=== PATIENT | female | born 1995 | race Caucasian/White ===

== ENCOUNTER 2020-02-13 22:42 | Observation (INO) | payer OTHER, SELFPAY ==
--- NOTE | ~2020-02-13 | CT_ITS ---
EXAMINATION: CT BRAIN W/O DATE: 02/13/2020 23:28 INDICATION: Left-sided weakness and facial numbness TECHNIQUE: Computed tomography (CT) of the head was performed without intravenous contrast. The dose- length product was 605.33 mGy-cm. The mA was adjusted according to patient size. Iterative reconstruc tion technique was employed. COMPARISON: CT dated 01/26/2015 FINDINGS: Normal brain parenchymal volume for age. Normal torres-white differentiation. No acute intrac ranial hemorrhage, infarction, mass or mass effect. No ventriculomegaly or midline shift. Midline sagittal images demonstrate a normal corpus callosum, c raniovertebral junction and sella turcica. Basilar cisterns are patent. Paranasal sinuses and mastoids are pneumatized. No depressed skull fractures. IMPRESSION: 1. No acute intracranial abnormality. Reviewed, dictated and finalized at location A. IT CARD ANALYST
--- NOTE | ~2020-02-13 | MR_ITS ---
EXAMINATION: MR cervical spine wo/w con EXAM DATE: 02/14/2020 14:07 INDICATION: Left sided weakness. TECHNIQUE: Multi-sequential, multiplanar MR images of the cervical spine were obtained without contra st. Axial T2, axial T2 MERGE sequence. Sagittal T1, T2, T2 fat saturation images also obtained. Axi al T1 weighted sequence. Patient was then injected with 9 mL Multihance intravenous contrast and pearl letty. Postcontrast axial and sagittal T1-weighted fat saturation sequences were obtained. There is no prior study for comparison. FINDINGS: The vertebral bodies are aligned in the AP dimension. Vertebral body and disc heights are well-maintained. The spinal cord signal intensity and intrinsic morphology is normal. Cervicomedullar y junction is normal in appearance. There are no suspicious marrow signal abnormalities. Paraspinal s oft tissue is unremarkable. No more than mild cervical arthropathy at any given level. No neural for aminal or central canal stenosis. There are no areas of abnormal enhancement on the post contrast henry ges. IMPRESSION: Unremarkable MR cervical spine exam. Reviewed, dictated and finalized at location B. LEADER/CONTROL ROOM OPERATOR
--- NOTE | ~2020-02-13 | MR_ITS ---
EXAMINATION: MR lumbar spine wo/w con EXAM DATE: 02/14/2020 14:07 INDICATION: left sided weakness . TECHNIQUE: Multi-sequential, multiplanar MR images of the lumbar spine were obtained without contrast . Sagittal T1, T2, T2 fat saturation images. Axial T2 weighted images. Axial T1 weighted sequence. Patient was then injected with 9 mL Multihance intravenous contrast and reimaged. Postcontrast axia l and sagittal T1-weighted fat saturation sequences were obtained. FINDINGS: The vertebral bodies are aligned in the AP dimension. Mild disc bulge at L5-S1. Vertebral b pranay and disc heights are well-maintained. There are no suspicious marrow signal abnormalities. The co nus medullaris terminates at the L1/2 level and has normal signal intensity and morphology. Paraspin al soft tissue is unremarkable. There are no areas of abnormal enhancement on the post contrast image s. Lumbar central canal and neural foramen widely patent. Mild lower lumbar facet arthropathy. IMPRESSION: Mild lower lumbar spondylosis. Reviewed, dictated and finalized at location B. CEMENTER
--- NOTE | ~2020-02-13 | MR_ITS ---
EXAMINATION: MR brain/brain stem wo/w con EXAM DATE: 02/14/2020 14:07 INDICATION: Left hemiparesis, symptoms 2 months. Blurred vision. TECHNIQUE: Magnetic resonance imaging (MRI) of the brain/brain stem obtained without contrast. Sagit paulette T1, axial diffusion, gradient echo (T2*), T1, T2, FLAIR sequences obtained. Patient was then inj ected with 9 cc intravenous Multihance contrast. Axial and coronal postcontrast T1 weighted sequences obtained. Correlation is made to head CT from 02/13/2020. FINDINGS: There are no areas of restricted diffusion to suggest acute infarction. There is no acute hemorrhage seen on the T2*, a hemosiderin sensitive sequence. No intraparenchymal brain mass. The ve ntricles are normal in size. There are no extra-axial collections. Flow voids are seen in the cereb ral arteries on the T2-weighted sequences consistent with their expected patency. The orbits are unr emarkable. Soft tissue is unremarkable. Partial right mastoidectomy. Postcontrast images are limit ed from motion, but no regions of abnormal enhancement suspected. IMPRESSION: 1. Unremarkable brain MRI examination. Reviewed, dictated and finalized at location B. GING OPERATOR
--- NOTE | ~2020-02-13 | MR_ITS ---
EXAMINATION: MR thoracic spine wo/w con EXAM DATE: 02/14/2020 14:07 INDICATION: left sided weakness. TECHNIQUE: Multi-sequential, multiplanar MR images of the thoracic spine were obtained without contra st. Sagittal T1, T2, T2 fat saturation, axial T2 weighted images reviewed. Axial T1 weighted sequenc e. Patient was then injected with 9 mL Multihance intravenous contrast and reimaged. Postcontrast a xial and sagittal T1-weighted fat saturation sequences were obtained. FINDINGS: The vertebral bodies are aligned in the AP dimension. Vertebral body and disc heights are w ell-maintained. There are no suspicious marrow signal abnormalities. Paraspinal soft tissue is unrema rkable. Thoracic spinal canal and neural foramen are widely patent. There are no areas of abnormal en hancement on the post contrast images. IMPRESSION: Unremarkable thoracic MR exam. Reviewed, dictated and finalized at location B. IT VERIFICATION CLERK
--- NOTE | ~2020-02-13 | XR_ITS ---
EXAMINATION: XR chest 2V 02/13/2020 23:48 INDICATION: Rule out cardiopulmonary abnormality. Dyspnea. PROCEDURE: 2 view chest COMPARISON: 11/05/2018 FINDINGS: The lungs are clear. The cardiomediastinal silhouette is within normal limits. There are no pleural effusions. There is no pneumothorax suspected. Prominent bilateral nipple shadows. IMPRESSION: 1: NO ACUTE CARDIOPULMONARY DISEASE. Reviewed, dictated and finalized at location A. CTION HEAT TREATER
--- NOTE | 2020-02-13 22:46 | ED.GENADULT ---
HPI - General Adult General Chief complaint: Unspecified Stated complaint: left arm and face numbness x 2 months Time Seen by Provider: 02/13/20 22:45 Source: patient and family Mode of arrival: ambulatory Limitations: no limitations History of Present Illness HPI narrative: Patient is a 24-year-old female who presents for evaluation of left-sided weakness. Patient reports arm, hand and left leg weakness over the past 6 to 8 weeks, worsening in nature. Patient denies any headache or vision changes, states that this evening she has had difficulty gripping anything with her left hand, has more frequently been dropping items, and was unable to type this evening. She states that she does not currently have a primary care physician that she is established with. She denies any fever, chills, neck pain, chest or abdominal pain. No recent illnesses. Patient states that 1 year ago she developed a severe right inner ear infection that had to be managed inpatient at [facility] and she does get recurrent ear infections and has been experiencing ear pain and ear discharge from the right ear. She follows with Dr. Brooks at [facility] for that. She is not currently on any antibiotics. Related Data Home Medications Medication Instructions Recorded Confirmed Iud 02/13/19 09/27/19 alprazolam 0.5 mg PO TID PRN 02/13/19 09/27/19 dextroamphetamine-amphetamine 5 mg PO DAILY 02/13/19 09/27/19 [Adderall] dextroamphetamine-amphetamine 15 mg PO DAILY 02/13/19 09/27/19 [Adderall] Allergies Allergy/AdvReac Type Severity Reaction Status Date / Time adhesive tape Allergy Mild Rash Verified 09/27/19 15:28 Review of Systems Review of Systems: Narrative: CONSTITUTIONAL: Denies fever, chills, or sweats. EYES: Denies visual changes, redness, or discharge. ENT: Denies rhinorrhea, congestion, sore throat, reports right ear pain CARDIOVASCULAR: Denies chest pain, palpitations, or edema. RESPIRATORY: Denies cough or dyspnea. GASTROINTESTINAL: Denies abdominal pain, nausea, vomiting, or diarrhea. GENITOURINARY: Denies dysuria or hematuria. SKIN: Denies rash or itching. MUSCULOSKELETAL: Denies back pain, joint pain, or myalgia. NEUROLOGIC: Denies headache, numbness, reports left upper and left lower extremity weakness PMFSH Past Medical History Medical History ADHD Amblyopia Anxiety History of depression Microscopic colitis Mood disorder Surgical History Surgical History H/O colonoscopy H/O endoscopy Hx of tonsillectomy Family History Family History Mother Heart disease Hypertension Hyperlipidemia Father Carcinoma of colon Narcolepsy Sibling Depression Schizophrenia Bipolar disorder Autism spectrum disorder Asperger syndrome Grandparent Breast cancer Narcolepsy Carcinoma of colon Social History Social History Smoking status: Current every day smoker Tobacco type: e-cigarettes/vaping Alcohol intake: current Substance use: never Exam Narrative: Exam Narrative: GENERAL: Awake, alert, conversant HEAD: Normocephalic, atraumatic. EYES: PERRLA and EOMI. ENT: Nares clear, no rhinorrhea or epistaxis. Mucous membranes moist. Left otitis media, no perforation or bleeding. No pain with retraction of the pinna. No erythema along the mastoid. NECK: Supple. CHEST: No respiratory distress, breathing even and non labored HEART: Regular rate, sinus rhythm ABDOMEN:Non distended, non tender EXTREMITIES: Normal range of motion. No edema. SKIN: Warm, dry, no rash. NEURO: No facial droop. No dysarthria. No tongue deviation. Left upper extremity weakness, membership sales advisor strength is 4 out of 5 in the left upper extremity, 5 out of 5 in the right upper extremity. Left leg weakness, strength is 4 out of 5 i
[2020-02-13 22:48] VITALS: BP 120/62; PULSE 84; RESP 16; TEMP 36.8; O2SAT 98
[2020-02-13 23:47] LABS: Basophils Percent Auto 0.5 % (0.2-1.2); Eosinophils Absolute Auto 0.3 K/mm3 (0-0.3); Eosinophils Percent Auto 3.4 % (0-4.4); Hematocrit 41.4 % (37.0-47.0); Hemoglobin 14.1 g/dL (12.0-15.0); Immature Granulocyte Absolute 0.02 K/mm3 (0.00-0.031); Immature Granulocyte Percent A 0.2 % (0-0.5); Lymphocytes Absolute Auto 2.81 K/mm3 (0.9-3.2); Lymphocytes Percent Auto 33.8 % (18.3-44.2); Mean Corpuscular HGB Conc 34.1 g/dl (32-36); Mean Corpuscular Hemoglobin 29.9 pg (26-34); Mean Corpuscular Volume 87.9 fl (80-100); Mean Platelet Volume 10.5 fl (7.4-10.4); Monocytes Absolute Auto 0.7 K/mm3 (0.1-0.6); Monocytes Percent Auto 7.9 % (2.6-8.5); Neutrophils Absolute Auto 4.5 K/mm3 (1.3-6.7); Neutrophils Percent Auto 54.2 % (45.5-73.1); Platelet Count Result 166 k/mm3 (150-375); Red Blood Count 4.71 M/mm3 (4.2-5.4); White Blood Count 8.3 K/mm3 (4.5-10.0)
[2020-02-13 23:56] LABS: INR 1.1; Prothrombin Time 14.4 Seconds (11.1-14.7)
[2020-02-13 23:57] LABS: Partial Thromboplastin Time 26.1 SECONDS (22.3-36.8)
[2020-02-14] VITALS (13 sets, daily range): BP systolic 104–116; BP diastolic 56–71; PULSE 62–113; RESP 12–18; TEMP 36.5–36.8; O2SAT 96–100; BMI 20.5
[2020-02-14] LABS: Alanine Aminotransferase 11 U/L (4-35); Albumin Level 4.3 g/dL (3.5-5.1); Alkaline Phosphatase 54 U/L (38-126); Anion Gap 7 mmol/L (8-16); Aspartate Amino Transferase 20 U/L (14-36); Bilirubin,Total 0.6 mg/dL (0.2-1.3); Blood Urea Nitrogen 17 mg/dL (7-17); Calcium 9.4 mg/dL (8.4-10.2); Carbon Dioxide 30 mmol/L (22-30); Chloride 103 mmol/L (98-107); Estimated Glomerular Filt Rate > 60; Glucose 90 mg/dL (65-105); Potassium 3.7 mmol/L (3.4-5.0); Sodium 140 mmol/L (137-145)
--- NOTE | 2020-02-14 00:02 | ECG_ITS ---
Measurements Intervals Emerson Rate: 71 P: 58 NJ: 130 QRS: 69 QRSD: 94 T: 57 QT: 399 QTc: 434 Interpretive Statements SINUS RHYTHM INCOMPLETE RIGHT BUNDLE BRANCH BLOCK BORDERLINE ECG Electronically Signed On 02-14-2020 7:40:23 CUSTOMER CONSULTANT by Valentín Willard D.O.
[2020-02-14] MEDS: AMOXICILLIN/CLAVULANATE K 875-125 MG TAB 1 TABLET PO ×3 (02:34→20:08)
--- NOTE | 2020-02-14 03:00 | ADMGEN ---
This patient, Amy Roblero, was admitted to Medical Room 341-01. Patient/family oriented to hospital policies and general routines including ID bracelet, bed and alarms, visiting hours, pain management, procedures, bathroom and other care routines, personal items, smoking policy, room service/diet, and visiting hours. Information on how to activate the Rapid Response Team has been discussed. Patient/Family are encouraged to report perceived risks to care and to ask questions if they do not understand what they are told or what they should do.
--- NOTE | 2020-02-14 04:22 | PM.IMHP ---
H&P: HPI History of Present Illness Date/Time: 02/14/20 04:22 Chief Complaint: left hand weakness Narrative: This is a 24 year old Caucsian female with known bipolar disorder and chronic ear infections who presented to the hospital with a complaint of left upper/lower extremity weakness that has been ongoing for the past 2 months. She has been noticing worsening left sided weakness which seems to have worsened recently. She has decreased pbx mechanic strength of her left hand. Associated symptoms include intermittent blurry vision. She denies any numbness or tingling. She has not had any recent head trauma or seizure like symptoms. The patient is known to have chronic ear infections for which she sees Dr. Brooks, ENT who helps her by cleaning out the cerumen in her ears and giving her Ciprodex antibiotic ear drops. The patient reports that she has been having right ear pain which is reminiscent of when she has an ear infection. Tonight she denies any fevers, chills, headache, facial droop, slurred speech, nausea, vomiting, neck stiffness, sore throat, chest pain, shortness of breath, cough, abdominal pain, dysuria, hematuria, diarrhea, rectal bleeding, bowel or bladder dysfunction, or LE swelling. She denies any other focal neurological deficits. ER provider has consulted Neurology, Dr. Snyder who has asked that we admit the patient to the hospital and he will evaluate her in the morning. No other complaints. Review of Systems Review of Systems: All systems reviewed & are unremarkable except as noted in HPI and below PMFSH Past Medical History Medical History ADHD Amblyopia Anxiety History of depression Microscopic colitis Mood disorder Surgical History Surgical History H/O colonoscopy H/O endoscopy Hx of tonsillectomy Family History Family History Mother Heart disease Hypertension Hyperlipidemia Father Carcinoma of colon early colon cancer in his 40s Narcolepsy Sibling Depression Schizophrenia Bipolar disorder Autism spectrum disorder Asperger syndrome Grandparent Breast cancer Narcolepsy Carcinoma of colon Social History Social History Smoking packs per day: 2 Smoking cigarettes per day: 40.0 Years smoked: 7 Smoking pack-years: 14.00 Smoking status: Current some day smoker Tobacco type: cigarettes and e-cigarettes/vaping Second hand tobacco smoke exposure: Yes Alcohol intake: current Drinks per week: 1 Substance use: current Substance use type: marijuana Other substance usage details: uses 1-2 times per month Last use: 1 week ago Gender identity (if verbalized by the patient): Female Spiritual care concerns: No Meds Home Medications and Allergies Home Medications Medication Instructions Recorded Confirmed Type alprazolam 0.5 mg PO DAILY PRN 02/13/19 02/14/20 History Vraylar 1.5 mg PO DAILY 02/14/20 02/14/20 History trazodone See Rx Instructions .ROUTE .COMPLEX 02/14/20 02/14/20 History amoxicillin-pot clavulanate 1 tablet PO Q12HR 6 Days #12 tablet 02/15/20 Rx [Augmentin] Allergies Allergy/AdvReac Type Severity Reaction Status Date / Time adhesive tape Allergy Mild Rash Verified 02/14/20 03:08 Vital Signs Vital Signs - 24 hr 02/13/20 22:48 02/14/20 00:07 02/14/20 02:54 Temperature 36.8 C 36.8 C Pulse Rate 84 77 81 Respiratory Rate 16 16 16 Blood Pressure 120/62 109/66 104/62 Pulse Oximetry 98 100 100 02/14/20 03:11 02/14/20 03:31 02/14/20 03:40 Temperature 36.8 C Pulse Rate 62 86 62 Respiratory Rate 12 12 Blood Pressure 116/71 116/71 Pulse Oximetry 100 02/14/20 04:00 Temperature Pulse Rate 93 Respiratory Rate Blood Pressure Pulse Oximetry Exam Const: General: cooperative, no acute distress, a
[2020-02-14 05:43] LABS: Basophils Percent Auto 0.7 % (0.2-1.2); Eosinophils Absolute Auto 0.3 K/mm3 (0-0.3); Eosinophils Percent Auto 5.4 % (0-4.4); Hematocrit 41.3 % (37.0-47.0); Hemoglobin 13.9 g/dL (12.0-15.0); Immature Granulocyte Absolute 0.02 K/mm3 (0.00-0.031); Immature Granulocyte Percent A 0.3 % (0-0.5); Lymphocytes Absolute Auto 2.39 K/mm3 (0.9-3.2); Lymphocytes Percent Auto 39.1 % (18.3-44.2); Mean Corpuscular HGB Conc 33.7 g/dl (32-36); Mean Corpuscular Hemoglobin 29.6 pg (26-34); Mean Corpuscular Volume 87.9 fl (80-100); Mean Platelet Volume 10.7 fl (7.4-10.4); Monocytes Absolute Auto 0.5 K/mm3 (0.1-0.6); Monocytes Percent Auto 8.7 % (2.6-8.5); Neutrophils Absolute Auto 2.8 K/mm3 (1.3-6.7); Neutrophils Percent Auto 45.8 % (45.5-73.1); Platelet Count Result 166 k/mm3 (150-375); Red Cell Distribution Width 11.9 % (11.5-14.5); White Blood Count 6.1 K/mm3 (4.5-10.0)
[2020-02-14 05:56] LABS: Anion Gap 6 mmol/L (8-16); Blood Urea Nitrogen 16 mg/dL (7-17); Calcium 9.1 mg/dL (8.4-10.2); Carbon Dioxide 29 mmol/L (22-30); Chloride 103 mmol/L (98-107); Estimated Glomerular Filt Rate > 60; Glucose 127 mg/dL (65-105); Magnesium 2.2 mg/dL (1.6-2.3); Potassium 3.7 mmol/L (3.4-5.0); Sodium 138 mmol/L (137-145)
[2020-02-14 06:21] LABS: Free T4 Free Thyroxine 1.12 ng/mL (0.78-2.19)
[2020-02-14 08:46] LABS: Folic Acid 13.9 ng/mL (2.76->20)
[2020-02-14] MEDS: ALPRAZolam (*CRX) 0.5 MG TABLET PO ×2 (09:57→10:52)
--- NOTE | 2020-02-14 10:53 | PM.IMPN ---
Progress Note: A&P Assessment and Plan (1) Acute left-sided weakness: Code(s): R53.1 - Weakness Status: Acute Assessment and Plan: Pts symptoms are concerning for a neurological disorder. -DDx includes Multiple sclerosis, demyelinating syndrome, myelitis, CVA, conversion disorder -B12, folate, and TSH are WNL -MRI of brain and spinal cord ordered -Pt has no hx of autoimmune disease or MS in her family that she knows of -Consider EMG testing and LP once MRI has been resulted -Neurology consult -Pt has bipolar disorder which appears to be under control. No signs of malingering although cannot rule out that or conversion disorder -no signs of infection (2) Anxiety: Code(s): F41.9 - Anxiety disorder, unspecified Status: Chronic Assessment and Plan: Continue home xanax. -She used to take it 3x a day but is trying to be weaned off (3) Mood disorder: Code(s): F39 - Unspecified mood [affective] disorder Status: Chronic Assessment and Plan: Stable, Continue home antipsychotic meds. -okay to bring from home (4) Right ear pain: Code(s): H92.01 - Otalgia, right ear Status: Acute Assessment and Plan: Continue augmentin -follow up with her ENT Time Spent With Patient Time with patient: 25 - 35 minutes Subjective Date/time seen: 02/14/20 10:53 Interval history: Pt is a 24 y/o female here for left sided weakness. Pt states the numbness comes and goes but never fully goes away. Right now she has some feeling in her left fingers but it comes and goes. She has not had any loss of vision, problems with speak and states she has no problems with walking but does trip over her left foot at times because it doesn't cooperate right. She started a new bipolar medication vraylar a few weeks ago but all these symptoms started before that. Since the medication she has occasional blurred vision which her doctor said was normal. Her earache is better. No CP, SOB, nausea, vomiting or diarrhea. Review of Systems Review of Systems: All systems reviewed & are unremarkable except as noted in HPI and below Exam Narrative: Exam Narrative: General: Well developed well nourished patient in NAD HEENT: normocephalic Neck: supple Neuro: Alert and oriented x4. Club Manager strength weak 4/5 on the left side. Pt able to do finger to nose and rapid alternating movements with both hands. She had a negative Romberg. No pronator drift. She was unable to differentiate dull vs sharp on the palmar surface of the left hand near the fingers but each finger had sensation intact. No ataxia or foot drop noted while walking. CN 2-12 intact. CV:RRR. tele without abnormalities Resp:CTA Abd: Soft, non distended. No pain to palpation. Positive bowel sounds Extremities: No swelling, erythema, or pain to palpation. Objective Data Vital Signs Vital Signs: Vital Signs - 24 hr 02/13/20 22:48 02/14/20 00:07 02/14/20 02:54 Temperature 98.2 F 98.2 F Pulse Rate 84 77 81 Respiratory Rate 16 16 16 Blood Pressure 120/62 109/66 104/62 Pulse Oximetry 98 100 100 02/14/20 03:11 02/14/20 03:31 02/14/20 03:40 Temperature 98.2 F Pulse Rate 62 86 62 Respiratory Rate 12 12 Blood Pressure 116/71 116/71 Pulse Oximetry 100 02/14/20 04:00 02/14/20 05:37 02/14/20 08:00 Temperature 97.7 F Pulse Rate 93 75 77 Respiratory Rate 12 Blood Pressure 105/56 L Pulse Oximetry 100 Intake/Output Intake/Output: Intake & Output 02/11/20 02/12/20 02/13/20 02/14/20 23:59 23:59 23:59 23:59 Intake Total 440 Output Total 400 Balance 40 Meds/Results Medications: Active Medications Generic Name Dose Route Start Last Admin Trade Name Rafyq PRN Reason Stop Dose Admin Acetaminophen 650 mg 02/14/20 01:19 Acetaminophen 325 Mg Tablet PO Q4H PRN Mild Pain (1-3) or Fever Alprazolam 0.5 mg 02/14/20 10:34 Alprazolam (*Crx) 0.5 Mg Tablet PO
[2020-02-14 12:31] LABS: CRP < 0.5 mg/dL (<1.0)
--- NOTE | 2020-02-14 12:55 | WPDNEURCNPN ---
Assessment and Plan Assessment and plan (1) Right ear pain: Code(s): H92.01 - Otalgia, right ear Status: Acute (2) Acute left-sided weakness: Code(s): R53.1 - Weakness Status: Acute (3) ADHD: Code(s): F90.9 - Attention-deficit hyperactivity disorder, unspecified type Status: Acute Additional Plan complaint of left-sided weakness and numbness considering the age of the patient I will obtain the MRI of the brain to rule out the possibly of demyelinating disease which is extremely unlikely Consult date: 02/14/20 Time Seen: 12:00 HPI: Amy Roblero is a 24 year old female admitted to the hospital for the complaints of left upper and left lower extremity weakness ongoing for the last couple of months with association of blurred vision and also with no history of trauma or seizures. Patient is known to have chronic ear infection for which she is under the care of ENT specialist. She has been complaining of right ear pain. Patient does carry the diagnosis of bipolar illness. Additionally patient has ongoing history of ADHD anxiety there is history of schizophrenia with bipolar disorder and autism spectrum disorder in the family . Patient is smoking 2 packs per day with smoking packed here history of 14. Routine lab in the emergency room is negative and head CT scan is normal Review of Systems Review of Systems: All systems reviewed & are unremarkable except as noted in HPI and below PMFSH Past Medical History Medical History ADHD Amblyopia Anxiety History of depression Microscopic colitis Mood disorder Surgical History Surgical History H/O colonoscopy H/O endoscopy Hx of tonsillectomy Family History Family History Mother Heart disease Hypertension Hyperlipidemia Father Carcinoma of colon early colon cancer in his 40s Narcolepsy Sibling Depression Schizophrenia Bipolar disorder Autism spectrum disorder Asperger syndrome Grandparent Breast cancer Narcolepsy Carcinoma of colon Social History Social History Smoking packs per day: 2 Smoking cigarettes per day: 40.0 Years smoked: 7 Smoking pack-years: 14.00 Smoking status: Current some day smoker Tobacco type: cigarettes and e-cigarettes/vaping Second hand tobacco smoke exposure: Yes Alcohol intake: current Drinks per week: 1 Substance use: current Substance use type: marijuana Other substance usage details: uses 1-2 times per month Last use: 1 week ago Gender identity (if verbalized by the patient): Female Spiritual care concerns: No Meds Home Medications and Allergies Home Medications Medication Instructions Recorded Confirmed Type alprazolam 0.5 mg PO DAILY PRN 02/13/19 02/14/20 History cariprazine [Vraylar] 1.5 mg PO DAILY 02/14/20 02/14/20 History trazodone See Rx Instructions .ROUTE .COMPLEX 02/14/20 02/14/20 History Allergies Allergy/AdvReac Type Severity Reaction Status Date / Time adhesive tape Allergy Mild Rash Verified 02/14/20 03:08 Vital Signs Vital Signs - 24 hr 02/13/20 22:48 02/14/20 00:07 02/14/20 02:54 Temperature 36.8 C 36.8 C Pulse Rate 84 77 81 Respiratory Rate 16 16 16 Blood Pressure 120/62 109/66 104/62 Pulse Oximetry 98 100 100 02/14/20 03:11 02/14/20 03:31 02/14/20 03:40 Temperature 36.8 C Pulse Rate 62 86 62 Respiratory Rate 12 12 Blood Pressure 116/71 116/71 Pulse Oximetry 100 02/14/20 04:00 02/14/20 05:37 02/14/20 08:00 Temperature 36.5 C Pulse Rate 93 75 77 Respiratory Rate 12 Blood Pressure 105/56 L Pulse Oximetry 100 02/14/20 12:00 Temperature Pulse Rate 72 Respiratory Rate Blood Pressure Pulse Oximetry Exam Narrative: Exam Narrative: examination revealed her to be
--- NOTE | 2020-02-14 18:38 | PHAR ---
Loulouaylar 1.5mg see in pharmacy and returned to [facility] nursing unit
[2020-02-15] VITALS: PULSE 55
[2020-02-15 04:00] VITALS: PULSE 83
[2020-02-15 04:27] VITALS: BP 110/58; PULSE 81; RESP 18; TEMP 36.4; O2SAT 99
[2020-02-15] MEDS: ALPRAZolam (*CRX) 0.5 MG TABLET PO (04:52)
[2020-02-15 08:41] VITALS: PULSE 85
[2020-02-15] MEDS: AMOXICILLIN/CLAVULANATE K 875-125 MG TAB 1 TABLET PO (08:41)
--- NOTE | 2020-02-15 11:36 | PM.DS ---
DS: Admitting Diagnosis Admitting Diagnosis Admitting Diagnosis: Left-sided weakness DS: Discharge Diagnosis Discharge Diagnosis (1) Acute left-sided weakness: Code(s): R53.1 - Weakness Status: Acute Assessment and Plan: Pts symptoms are concerning for a neurological disorder. -MRI of the brain, cervical, lumbar, and thoracic spine normal -patient would [facility] in [facility]y unit -we discussed a lumbar puncture and EMG. -we also talked about conversion disorder and she says she has been told she may have that in the past by her psychiatrist PA -DDx includes Multiple sclerosis, demyelinating syndrome, myelitis, CVA, conversion disorder -B12, folate, and TSH are WNL -Pt has no hx of autoimmune disease or MS in her family that she knows of -Pt has bipolar disorder which appears to be under control. No signs of malingering although cannot rule out that or conversion disorder -no signs of infection (2) Anxiety: Code(s): F41.9 - Anxiety disorder, unspecified Status: Chronic Assessment and Plan: Continue home xanax. -She used to take it 3x a day but is trying to be weaned off (3) Mood disorder: Code(s): F39 - Unspecified mood [affective] disorder Status: Chronic Assessment and Plan: Stable, Continue home antipsychotic meds. (4) Right ear pain: Code(s): H92.01 - Otalgia, right ear Status: Acute Assessment and Plan: Continue augmentin -follow up with her ENT DS: Summary Hospital Course Reason for hospitalization: Left-sided weakness Hospital Course: Patient is a 24-year-old female who presented emergency room for left-sided weakness that started a few weeks prior. Initial brain CT in the ER was negative. On exam, her strength was 4/5 in the upper and lower extremities. She also states she has some numbness and tingling in the left hand as well. She was admitted to the hospitalist service for observation and further workup. She underwent a brain MRI as well as cervical, thoracic, and lumbar MRI which were completely normal. Please see above for further details. I suspect she may have conversion disorder but she wants to follow-up with a neurologist at [facility] for further testing. The day of discharge the patient still had mild weakness but was ready to go. She was educated about the worrisome signs and symptoms to come back to emergency room for was discharged stable condition. pt states her psychiatrist PA has mentioned conversion disorder in the past pt discharged 02/15/20 Time spent discussing smoking cessation with patient: more than 10 minutes Status at Discharge Functional status at discharge: independent ambulation Overall status at discharge: patient is not back to baseline Time Spent with Patient Time attestation: Total time spent providing and/or coordinating discharge services:38 min Exam Narrative: Exam Narrative: General: Well developed well nourished patient in NAD HEENT: normocephalic Neck: supple Neuro: Alert and oriented x4. 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 Pt able to do finger to nose and rapid alternating movements with both hands. She had a negative Romberg. No pronator drift. She was unable to differentiate dull vs sharp on the palmar surface of the left hand near the fingers but each finger had sensation intact. No ataxia or foot drop noted while walking. CN 2-12 intact. CV:RRR. Telemetry shows occasional sinus tachycardia which is attributed to movement. It appeared regular Resp:CTA Abd: Soft, non distended. No pain to palpation. Positive bowel sounds Extremities: No swelling, erythema, or pain to palpation. DS: Data Data Completed and Pending Labs on day of discharge: Labs from last 24 hours 02/14/20 11:36 C-Reactive Protein < 0.5 Discharge Plan Discharge Attending physician on discharge: Jimbo Myers
== END 2020-02-15 12:55 | disposition home or self-care (01) ==
LOC: ANHED 02-14 02:10 → ANH3MED 02-14 02:26
PROVIDERS: Physician Assistant; Admitting Provider Family Medicine; Emergency Provider Emergency Medicine; Visit Provider Internal Medicine
DX: R53.1 Weakness (principal); F41.9 Anxiety disorder, unspecified; F39 Unspecified mood [affective] disorder; H92.01 Otalgia, right ear; R20.0 Anesthesia of skin; F90.9 Attention-deficit hyperactivity disorder, unspecified type; F31.9 Bipolar disorder, unspecified; F17.290 Nicotine dependence, other tobacco product, uncomplicated; F17.210 Nicotine dependence, cigarettes, uncomplicated; F12.90 Cannabis use, unspecified, uncomplicated
CPT/HCPCS: 36415; 70450; 70553; 71046; 72156; 72157; 72158; 80048; 80053; 82607; 82746; 83735; 84439; 85025; 85610; 85730; 86140; 93005; 99285; A9270; A9577; G0378

== ENCOUNTER 2020-08-21 11:04 | Emergency (ER) | payer OTHER, SELFPAY ==
[2020-08-21 11:14] VITALS: BP 122/80; PULSE 93; RESP 16; TEMP 37.1; O2SAT 99
--- NOTE | 2020-08-21 11:27 | ED.GENADULT ---
HPI - General Adult General Chief complaint: Nausea/Vomiting/Diarrhea Stated complaint: vomiting/tired/frequent urination Source: patient Mode of arrival: ambulatory Limitations: no limitations History of Present Illness HPI narrative: 24 y/o female. PMH includes: JB, MDD, Seasonal allergies. Presents to [facility] today with acute complaints of urinary frequency, urgency, and bladder fullness sensation for the past 3-5 days. She reports associated nausea mostly in the mornings , and has had isolated bouts of vomiting. No fevers, chills. No gross abdominal pain, flank pain, pelvic pain, vaginal discharge, or hematuria. She is on Mirena BC contraceptive, and took home test that patient reports yielded negative results this AM. No known ill contacts. She is without additional acute complaints of illness upon exam. Related Data Home Medications Medication Instructions Recorded Confirmed alprazolam 0.5 mg PO DAILY PRN 02/13/19 02/14/20 Vraylar 1.5 mg PO DAILY 02/14/20 02/14/20 trazodone See Rx Instructions .ROUTE .COMPLEX 02/14/20 02/14/20 dextroamphetamine-amphetamine PO 08/21/20 [Adderall XR] sertraline mg 08/21/20 Allergies Allergy/AdvReac Type Severity Reaction Status Date / Time adhesive tape Allergy Mild Rash Verified 02/14/20 03:08 Review of Systems Review of Systems: Narrative: CONSTITUTIONAL: Denies fever, chills, sweats. EYES: Denies visual changes, redness, discharge. ENT: Denies rhinorrhea, congestion, sore throat, otalgia. CARDIOVASCULAR: Denies chest pain, palpitations, edema. RESPIRATORY: Denies dyspnea, wheezing, cough GASTROINTESTINAL: Positive N/V. Denies abdominal pain, diarrhea. GENITOURINARY: Positive frequency, urgency, and 'fullness'. Denies dysuria, hematuria, abnormal discharge SKIN: Denies rash or itching. MUSCULOSKELETAL: Denies acute back pain, joint pain, or myalgia. NEUROLOGIC: Denies numbness, or focal weakness. PSYCHIATRIC: Denies anxiety or depression. All systems reviewed & are unremarkable except as noted in HPI and below PMFSH Past Medical History Medical History ADHD Amblyopia Anxiety History of depression Microscopic colitis Mood disorder Surgical History Surgical History H/O colonoscopy H/O endoscopy Hx of tonsillectomy Family History Family History Mother Heart disease Hypertension Hyperlipidemia Father Carcinoma of colon early colon cancer in his 40s Narcolepsy Sibling Depression Schizophrenia Bipolar disorder Autism spectrum disorder Asperger syndrome Grandparent Breast cancer Narcolepsy Carcinoma of colon Social History Social History Smoking packs per day: 2 Smoking cigarettes per day: 40.0 Years smoked: 7 Smoking pack-years: 14.00 Smoking status: Current some day smoker Tobacco type: cigarettes and e-cigarettes/vaping Second hand tobacco smoke exposure: Yes Alcohol intake: current Drinks per week: 1 Substance use: current Substance use type: marijuana Other substance usage details: uses 1-2 times per month Last use: 1 week ago Gender identity (if verbalized by the patient): Female Spiritual care concerns: No Exam Narrative: Exam Narrative: GENERAL: This is a well-nourished, well-developed patient, in no apparent distress. HEAD: normocephalic, atraumatic. EYES: PERRL. EARS: External ears normal. NOSE: External nose normal with no obvious nasal discharge. NECK: Neck supple, non-tender without lymphadenopathy, masses or thyromegaly. CARDIOVASCULAR: Regular rate and rhythm without murmurs, gallops, or rubs. RESPIRATORY: Clear to auscultation. Breath sounds equal bilaterally. GASTROINTESTINAL: Abdomen soft, non-tender, nondistended. Bowel soun
== END 2020-08-21 12:05 | disposition home or self-care (01) ==
PROVIDERS: Emergency Provider Nurse Practitioner Adult Health
DX: R11.0 Nausea (principal); F17.210 Nicotine dependence, cigarettes, uncomplicated; F90.9 Attention-deficit hyperactivity disorder, unspecified type; F41.9 Anxiety disorder, unspecified; F32.9 Major depressive disorder, single episode, unspecified
CPT/HCPCS: 81003; 81025; 99213; G0463

== ENCOUNTER → 2020-11-28 09:38 | Outpatient (CLI) | payer BC, SELFPAY ==
--- NOTE | ~2020-11-28 | US_ITS ---
EXAMINATION: US breast BI complete HISTORY: Mastodynia and bilateral nipple discharge TECHNIQUE: Complete bilateral breast ultrasound is performed including all four quadrants and the sub areolar aspects of both breasts. FINDINGS: No suspicious cystic or solid mass is identified in either breast to account for the patien t's mastodynia or nipple discharge. IMPRESSION: No specific sonographic correlate is identified for the reported patient's nipple discharge. Further evaluation at this time should be based on clinical assessment. Continued follow-up physical examinat ion is recommended. BI-RADS Category 1: Negative Reviewed, dictated and finalized at location A. IMPRESSION: No specific sonographic correlate is identified for the reported patient's nipp le discharge. Further evaluation at this time should be based on clinical asses sment. Continued follow-up physical examination is recommended. BI-RADS Category 1: Negative
== END ==
PROVIDERS: Visit Provider Obstetrics & Gynecology
DX: N64.4 Mastodynia (principal); N64.52 Nipple discharge
CPT/HCPCS: 76641

== ENCOUNTER 2020-12-06 09:17 | Emergency (ER) | payer BC, SELFPAY ==
[2020-12-06 09:26] VITALS: BP 107/61; PULSE 69; RESP 16; TEMP 36.5; O2SAT 99
--- NOTE | 2020-12-06 09:31 | ED.NAVMDI ---
HPI - Nausea/Vomiting/Diarrhea General Chief complaint: Nausea/Vomiting/Diarrhea Stated complaint: vomiting Time Seen by Provider: 12/06/20 09:31 Source: patient Mode of arrival: ambulatory Limitations: no limitations History of Present Illness HPI Narrative: Amy Roblero is a 25 yo female with a PMH of bipolar disorder, anxiety and depression, hyperprolactinemia, who comes to [facility] stating that she has had nausea vomiting x4 days. 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 EYES: Denies visual changes, redness, discharge. ENT: Denies rhinorrhea, congestion, sore throat, otalgia. CARDIOVASCULAR: Denies chest pain, palpitations, edema. RESPIRATORY: Denies dyspnea, wheezing, cough GASTROINTESTINAL: Denies abdominal pain, has nausea, vomiting, no diarrhea. GENITOURINARY: Denies dysuria, hematuria, abnormal discharge SKIN: Denies rash or itching. NEUROLOGIC: Denies numbness, or focal weakness. PSYCHIATRIC: Denies anxiety or depression. [facility] Past Medical History Medical History ADHD Amblyopia Anxiety History of depression Microscopic colitis Mood disorder Surgical History Surgical History H/O colonoscopy H/O endoscopy Hx of tonsillectomy Family History Family History Mother Heart disease Hypertension Hyperlipidemia Father Carcinoma of colon early colon cancer in his 40s Narcolepsy Sibling Depression Schizophrenia Bipolar disorder Autism spectrum disorder Asperger syndrome Grandparent Breast cancer Narcolepsy Carcinoma of colon Social History Social History Smoking packs per day: 2 Smoking cigarettes per day: 40.0 Years smoked: 7 Smoking pack-years: 14.00 Smoking status: Current some day smoker Tobacco type: cigarettes and e-cigarettes/vaping Second hand tobacco smoke exposure: Yes Alcohol intake: current Drinks per week: 1 Substance use: current Substance use type: marijuana Other substance usage details: uses 1-2 times per month Last use: 1 week ago Gender identity (if verbalized by the patient): Female Spiritual care concerns: No Comments At time of signature, I agree with nursing past medical, surgical, social and family history. There is no relevant family history pertinent to the presenting complaint. Exam Narrative: GENERAL: This is a well-nourished, well-developed patient, in mild distress. HEAD: normocephalic, atraumatic. EYES:Sclera clear/white. Vision is grossly intact. EARS: External ears normal, Hearing grossly intact. NOSE: External nose normal without nasal discharge, nares without redness, no rhinorrhea. THROAT: Mucous membranes moist, posterior pharynx pink NECK: Neck supple, non-tender CARDIOVASCULAR: Regular rate and rhythm without murmurs, gallops, or rubs. RESPIRATORY: Clear to auscultation. Breath sounds equal bilaterally. No wheezes, rales, or rhonchi. GASTROINTESTINAL: Abdomen soft, denies pain except when vomiting SKIN: warm, intact with no suspicious lesions or rash, good texture and turgor. NEURO: awake, alert, and oriented to
== END 2020-12-06 10:07 | disposition home or self-care (01) ==
PROVIDERS: Emergency Provider Nurse Practitioner
DX: R11.2 Nausea with vomiting, unspecified (principal); T50.905A Adverse effect of unspecified drugs, medicaments and biological substances, initial encounter; F41.9 Anxiety disorder, unspecified; F32.A Depression, unspecified; F90.9 Attention-deficit hyperactivity disorder, unspecified type; F17.200 Nicotine dependence, unspecified, uncomplicated
CPT/HCPCS: 99213; G0463

== ENCOUNTER → 2020-12-23 12:10 | Outpatient (CLI) | payer BC, SELFPAY ==
--- NOTE | ~2020-12-23 | MR_ITS ---
EXAMINATION: MR pituitary wo/w con EXAM DATE: 12/23/2020 13:30 INDICATION: Hyperprolactinemia. Elevated prolactin. TECHNIQUE: Magnetic resonance imaging (MRI) of the brain/pituitary obtained without contrast. Louie al T1, axial diffusion, gradient echo (T2*), T1, T2, FLAIR sequences obtained. Patient was then inje cted with 10 cc intravenous Multihance contrast. Axial and coronal postcontrast T1 weighted sequences obtained. A pituitary protocol was utilized including dynamic imaging through the pituitary gland du ring intravenous injection of contrast. Comparison is made to prior examination from 02/14/2020. FINDINGS: The pituitary gland is confined to the sella turcica. Suprasellar region normal in appear ance. The optic chiasm normal. No definite pituitary microadenoma identified. Please note small m icroadenomas can cause endocrine abnormalities but are not always identified by imaging even using de dicated pituitary protocol. This does exclude macroadenoma or need for surgical management. There are no areas of restricted diffusion to suggest acute infarction. There is no acute hemorrhage seen on the T2*, a hemosiderin sensitive sequence. No intraparenchymal brain mass. The ventricles a re normal in size. There are no extra-axial collections. Flow voids are seen in the cerebral arteri es on the T2-weighted sequences consistent with their expected patency. The orbits are unremarkable. Soft tissue is unremarkable. There is right mastoid effusion. IMPRESSION: Unremarkable brain/pituitary examination. Reviewed, dictated and finalized at location A.
[2020-12-23 12:51] LABS: Estimated Glomerular Filt Rate > 60
== END ==
PROVIDERS: Visit Provider Obstetrics & Gynecology
DX: E22.1 Hyperprolactinemia (principal)
CPT/HCPCS: 70553; A9577

== ENCOUNTER 2021-02-02 19:04 | Emergency (ER) | payer BC, SELFPAY ==
[2021-02-02 19:12] VITALS: BP 120/65; PULSE 87; RESP 18; TEMP 37.4; O2SAT 99
--- NOTE | 2021-02-02 19:21 | ED.URI ---
HPI - URI/Sore Throat General Chief Complaint: Upper Respiratory Infection Stated Complaint: Cough,Aches Time Seen by Provider: 02/02/21 19:22 Source: patient and family History of Present Illness HPI Narrative: Patient requests something for her cough. Patient states she has had upper respiratory symptoms for the past 4 days. Patient has had 2 - COVID-19 tests at [facility] with the last one being prior to arrival in [facility]. 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 Patient is requesting something for her cough and does not wish to be tested for COVID-19 again at this visit. MD elicited complaint: cough Related Data Home Medications Medication Instructions Recorded Confirmed alprazolam 0.5 mg PO DAILY PRN 02/13/19 02/02/21 Vraylar 1.5 mg PO DAILY 02/14/20 02/02/21 trazodone See Rx Instructions .ROUTE .COMPLEX 02/14/20 02/02/21 sertraline 100 mg PO DAILY 08/21/20 02/02/21 dextroamphetamine-amphetamine 10 mg PO DAILY 12/06/20 02/02/21 [Adderall XR] Allergies Allergy/AdvReac Type Severity Reaction Status Date / Time adhesive tape Allergy Mild Rash Verified 02/02/21 19:06 Review of Systems Review of Systems: CONSTITUTIONAL: Denies fever, chills, or sweats. EYES: Denies visual changes, redness, or discharge. ENT: Denies rhinorrhea, congestion, sore throat, or otalgia. CARDIOVASCULAR: Denies chest pain, palpitations, or edema. RESPIRATORY: Denies cough or dyspnea. GASTROINTESTINAL: Denies abdominal pain, nausea, vomiting, or diarrhea. GENITOURINARY: Denies dysuria or hematuria. SKIN: Denies rash or itching. MUSCULOSKELETAL: Denies back pain, joint pain, or myalgia. NEUROLOGIC: Denies headache, numbness, or weakness. PSYCHIATRIC: Denies anxiety or depression. [facility] Past Medical History Medical History ADHD Amblyopia Anxiety History of depression Microscopic colitis Mood disorder Surgical History Surgical History H/O colonoscopy H/O endoscopy Hx of tonsillectomy Family History Family History Mother Heart disease Hypertension Hyperlipidemia Father Carcinoma of colon early colon cancer in his 40s Narcolepsy Sibling Depression Schizophrenia Bipolar disorder Autism spectrum disorder Asperger syndrome Grandparent Breast cancer Narcolepsy Carcinoma of colon Social History Social History Smoking packs per day: 2 Smoking cigarettes per day: 40.0 Years smoked: 7 Smoking pack-years: 14.00 Smoking status: Current some day smoker Tobacco type: cigarettes and e-cigarettes/vaping Second hand tobacco smoke exposure: Yes Alcohol intake: current Drinks per week: 1 Substance use: current Substance use type: marijuana Other substance usage details: uses 1-2 times per month Last use: 1 week ago Gender identity (if verbalized by the patient): Female Spiritual care concerns: No Comments At time of signature, agree with nursing past medical, surgical, social and family history. There is no relevant family history pertinent to the presenting complaint Exam Narrative: GENERAL: Well-appearing, well-nourished, and in no acute distress. HEAD: Normocephalic, atraumatic. EYES: PERRLA and EOMI. ENT: Nares clear, no rhinorrhea or epistaxis. Mucous membranes moist. NECK: Supple. CHEST: Clear to auscultation. No respiratory distress. HEART: Regular rate and rhythm. No murmur heard. Normal peripheral pulses. ABDOMEN: Soft, nontender, nondistended, normal active bowel sounds. EXTREMITIES: Normal range of motion. No edema. SKIN: Warm, dry, no rash. NEURO: No focal deficits. Alert and oriented x3. Corrine Coma Scale Eye Opening: Spontaneous 4 Corrine Coma Scale Motor: Obeys Commands 6 [place] Coma Sc
== END 2021-02-02 19:29 | disposition home or self-care (01) ==
PROVIDERS: Emergency Provider Nurse Practitioner Family
DX: J40 Bronchitis, not specified as acute or chronic (principal); F17.210 Nicotine dependence, cigarettes, uncomplicated; F90.9 Attention-deficit hyperactivity disorder, unspecified type; F41.9 Anxiety disorder, unspecified; F32.9 Major depressive disorder, single episode, unspecified
CPT/HCPCS: 99213; G0463

== ENCOUNTER 2021-05-07 17:21 | Emergency (ER) | payer BC, SELFPAY ==
[2021-05-07 17:32] VITALS: BP 88/60; PULSE 69; RESP 16; TEMP 36.8; O2SAT 99
--- NOTE | 2021-05-07 17:58 | ED.EAR ---
HPI - Ear Problem General Chief complaint: Ear Stated complaint: ear pain Time Seen by Provider: 05/07/21 17:59 Source: patient Mode of arrival: ambulatory Limitations: no limitations History of Present Illness HPI Narrative: 25-year-old female presents with right ear pain for 4 days. Afebrile. Today when she bent over she felt excruciating pain to her right ear. Also has a little pressure to the left ear. Denies congestion, runny nose, postnasal drainage. All systems reviewed and negative except as noted above. Related Data Home Medications Medication Instructions Recorded Confirmed alprazolam 0.5 mg PO DAILY PRN 02/13/19 05/07/21 Vraylar 1.5 mg PO DAILY 02/14/20 05/07/21 trazodone See Rx Instructions .ROUTE .COMPLEX 02/14/20 05/07/21 sertraline 100 mg PO DAILY 08/21/20 05/07/21 dextroamphetamine-amphetamine 15 mg PO DAILY 05/07/21 05/07/21 pantoprazole 40 mg PO DAILY 05/07/21 05/07/21 Allergies Allergy/AdvReac Type Severity Reaction Status Date / Time adhesive tape Allergy Mild Rash Verified 05/07/21 17:37 Review of Systems Review of Systems: CONSTITUTIONAL: Denies fever, chills, or sweats. EYES: Denies visual changes, redness, or discharge. ENT: Denies rhinorrhea, congestion, sore throat. Pain to right ear, pressure to left ear. CARDIOVASCULAR: Denies chest pain, palpitations, or edema. RESPIRATORY: Denies cough or dyspnea. GASTROINTESTINAL: Denies abdominal pain, nausea, vomiting, or diarrhea. GENITOURINARY: Denies dysuria or hematuria. SKIN: Denies rash or itching. MUSCULOSKELETAL: Denies back pain, joint pain, or myalgia. NEUROLOGIC: Denies headache, numbness, or weakness. PSYCHIATRIC: Denies anxiety or depression. All other systems reviewed are negative, except as documented in HPI. [facility] Past Medical History Medical History ADHD Amblyopia Anxiety History of depression Microscopic colitis Mood disorder Surgical History Surgical History H/O colonoscopy H/O endoscopy Hx of tonsillectomy Family History Family History Mother Heart disease Hypertension Hyperlipidemia Father Carcinoma of colon early colon cancer in his 40s Narcolepsy Sibling Depression Schizophrenia Bipolar disorder Autism spectrum disorder Asperger syndrome Grandparent Breast cancer Narcolepsy Carcinoma of colon Social History Social History Smoking packs per day: 2 Smoking cigarettes per day: 40.0 Years smoked: 7 Smoking pack-years: 14.00 Smoking status: Current some day smoker Tobacco type: cigarettes and e-cigarettes/vaping Second hand tobacco smoke exposure: Yes Alcohol intake: current Drinks per week: 1 Substance use: current Substance use type: marijuana Other substance usage details: uses 1-2 times per month Last use: 1 week ago Gender identity (if verbalized by the patient): Female Spiritual care concerns: No Comments At time of signature, agree with nursing past medical, surgical, social and family history. There is no relevant family history pertinent to the presenting complaint. Exam Narrative: GENERAL: This is a well-nourished, well-developed patient, in no apparent distress. HEAD: normocephalic, atraumatic. EYES: PERRL. Sclera clear/white. Vision is grossly intact. EARS: External ears normal. Purulent fluid with retraction to right ear. Left TM normal. TMs normal without perforation. Hearing grossly intact. NOSE: External nose normal with no obvious nasal discharge, nares without redness, no rhinorrhea. THROAT: Mucous membranes moist, posterior pharynx clear. NECK: Neck supple, non-tender without lymphadenopathy, masses or thyromegaly. CARDIOVASCULAR: Regular rate and rhythm without murmurs, gallops, or rubs. RESPIRATORY: Clear to ausc
== END 2021-05-07 18:06 | disposition home or self-care (01) ==
PROVIDERS: Emergency Provider Nurse Practitioner Family; PCP Family Medicine
DX: H65.01 Acute serous otitis media, right ear (principal); F17.210 Nicotine dependence, cigarettes, uncomplicated; F17.290 Nicotine dependence, other tobacco product, uncomplicated; F12.90 Cannabis use, unspecified, uncomplicated; F41.9 Anxiety disorder, unspecified; F90.9 Attention-deficit hyperactivity disorder, unspecified type; F31.9 Bipolar disorder, unspecified
CPT/HCPCS: 99213; G0463

== ENCOUNTER 2021-10-14 16:50 | Emergency (ER) | payer OTHER, SELFPAY ==
--- NOTE | 2021-10-14 16:52 | ED.NAVMDI ---
HPI - Nausea/Vomiting/Diarrhea General Chief complaint: Nausea/Vomiting/Diarrhea Stated complaint: vomiting Time Seen by Provider: 10/14/21 17:23 Source: patient and RN notes reviewed Mode of arrival: ambulatory Limitations: no limitations History of Present Illness HPI Narrative: 26-year-old presents with concern for vomiting. She reports vomiting started on Wednesday, eased up slightly on Wednesday, continued Wednesday night through today. Reports when she eats or drinks fluids she vomits approximately 30 minutes later. She denies abdominal pain, diarrhea, constipation. Reports she had a normal bowel movement today. She reports she has been trying to eat bland foods. She denies fever, bodies, chills, sweats. Denies upper respiratory symptoms. Denies dysuria, frequency, urgency, hematuria. MD elicited complaint: nausea and vomiting Related Data Home Medications Medication Instructions Recorded Confirmed alprazolam 0.5 mg tablet 0.5 mg PO DAILY PRN Anxiety 02/13/19 10/14/21 cariprazine 1.5 mg capsule 1.5 mg PO DAILY 02/14/20 10/14/21 (Vraylar) trazodone 50 mg tablet See Rx Instructions .Route .COMPLEX 02/14/20 10/14/21 sertraline 100 mg tablet 100 mg PO DAILY 08/21/20 10/14/21 dextroamphetamine-amphetamine ER 15 mg PO DAILY 05/07/21 10/14/21 15 mg 24hr capsule,extend release hydroxyzine HCl 25 mg tablet 25 mg PO TID PRN Anxiety 10/14/21 10/14/21 Allergies Allergy/AdvReac Type Severity Reaction Status Date / Time adhesive tape Allergy Mild Rash Verified 10/14/21 16:58 Review of Systems Review of Systems: CONSTITUTIONAL: Denies malaise, chills, sweats, or fever. ENT: Denies rhinorrhea, congestion, sinus pain, otalgia or sore throat. CARDIOVASCULAR: Denies chest pain, palpitations, or edema. RESPIRATORY: Denies cough or dyspnea. GASTROINTESTINAL: Denies abdominal pain, diarrhea, bloody, or mucous stools. Reports nausea, vomiting GENITOURINARY: Denies dysuria or hematuria. MUSCULOSKELETAL: Denies myalgia. NEUROLOGIC: Denies headache. All systems reviewed & are unremarkable except as noted in HPI and below [facility] Past Medical History Medical History ADHD Amblyopia Anxiety History of depression Microscopic colitis Mood disorder Surgical History Surgical History H/O colonoscopy H/O endoscopy Hx of tonsillectomy Family History Family History Mother Heart disease Hypertension Hyperlipidemia Father Carcinoma of colon early colon cancer in his 40s Narcolepsy Sibling Depression Schizophrenia Bipolar disorder Autism spectrum disorder Asperger syndrome Grandparent Breast cancer Narcolepsy Carcinoma of colon Social History Social History Smoking packs per day: 2 Smoking cigarettes per day: 40.0 Years smoked: 7 Smoking pack-years: 14.00 Smoking status: Current some day smoker Tobacco type: cigarettes and e-cigarettes/vaping Second hand tobacco smoke exposure: Yes Alcohol intake: current Drinks per week: 1 Substance use: current Substance use type: marijuana Other substance usage details: uses 1-2 times per month Last use: 1 week ago Gender identity (if verbalized by the patient): Female Spiritual care concerns: No Comments At time of signature, agree with nursing past medical, surgical, social and family history. There is no relevant family history pertinent to the presenting complaint Exam Narrative: GENERAL: Well-appearing, well-nourished, and in no acute distress. HEAD: Normocephalic, atraumatic. EYES: PERRLA, conjunctivae clear, and EOMI. ENT: Nares clear, turbinates pink, no rhinorrhea or epistaxis. Mucous membranes moist. Oropharynx without edema, erythema, or lesions. Tonsils not enlarged and without exudate. NECK: Supple. No ly
[2021-10-14 16:57] VITALS: BP 118/61; PULSE 78; RESP 16; TEMP 36.8; O2SAT 99
== END 2021-10-14 17:40 | disposition home or self-care (01) ==
PROVIDERS: Emergency Provider Nurse Practitioner; PCP Family Medicine
DX: R11.10 Vomiting, unspecified (principal); F17.210 Nicotine dependence, cigarettes, uncomplicated; F17.290 Nicotine dependence, other tobacco product, uncomplicated; F90.9 Attention-deficit hyperactivity disorder, unspecified type; F41.9 Anxiety disorder, unspecified; F32.A Depression, unspecified
CPT/HCPCS: 81003; 81025; 99213; G0463

== ENCOUNTER 2022-01-18 10:14 | Emergency (ER) | payer OTHER, SELFPAY ==
[2022-01-18 11:05] VITALS: BP 107/72; PULSE 98; RESP 18; TEMP 36.4; O2SAT 100
--- NOTE | 2022-01-18 11:27 | ED.GENADULT ---
HPI - General Adult General Chief complaint: Abdominal Pain Stated complaint: Abdominal Pain Time Seen by Provider: 01/18/22 11:28 Source: patient and RN notes reviewed Mode of arrival: ambulatory Limitations: no limitations History of Present Illness HPI narrative: 26-year-old female with a history of colitis presented for complaints of lower abdominal cramping, occasional bright red blood in stool, and diarrhea over the last 2 days. Two days ago she had nausea, vomiting, and diarrhea. She states the diarrhea has increased in intensity. She states she feels like she is having a ?colitis flare. ? She has left her previous GI doctor and is scheduled with a new registered medical transcriptionist in February. She is not currently on medication for colitis. Appetite is normal. She denies nausea, vomiting, urinary complaints, fevers or chills at this time. Related Data Home Medications Medication Instructions Recorded Confirmed alprazolam 0.5 mg tablet 0.5 mg PO DAILY PRN Anxiety 02/13/19 01/18/22 cariprazine 1.5 mg capsule 1.5 mg PO DAILY 02/14/20 01/18/22 (Vraylar) trazodone 50 mg tablet See Rx Instructions .Route .COMPLEX 02/14/20 01/18/22 sertraline 100 mg tablet 100 mg PO DAILY 08/21/20 01/18/22 dextroamphetamine-amphetamine ER 15 mg PO DAILY 05/07/21 01/18/22 15 mg 24hr capsule,extend release hydroxyzine HCl 25 mg tablet 25 mg PO TID PRN Anxiety 10/14/21 01/18/22 Allergies Allergy/AdvReac Type Severity Reaction Status Date / Time adhesive tape Allergy Mild Rash Verified 01/18/22 10:54 Review of Systems Review of Systems: ROS per HPI All systems reviewed & are unremarkable except as noted in HPI and below PMFSH Past Medical History Medical History ADHD Amblyopia Anxiety History of depression Microscopic colitis Mood disorder Surgical History Surgical History H/O colonoscopy H/O endoscopy Hx of tonsillectomy Family History Family History Mother Heart disease Hypertension Hyperlipidemia Father Carcinoma of colon early colon cancer in his 40s Narcolepsy Sibling Depression Schizophrenia Bipolar disorder Autism spectrum disorder Asperger syndrome Grandparent Breast cancer Narcolepsy Carcinoma of colon Social History Social History Smoking packs per day: 2 Smoking cigarettes per day: 40.0 Years smoked: 7 Smoking pack-years: 14.00 Smoking status: Current some day smoker Tobacco type: cigarettes and e-cigarettes/vaping Second hand tobacco smoke exposure: Yes Alcohol intake: current Drinks per week: 1 Substance use: current Substance use type: marijuana Other substance usage details: uses 1-2 times per month Last use: 1 week ago Gender identity (if verbalized by the patient): Female Spiritual care concerns: No Comments At time of signature, I have reviewed and agree with nursing past medical, surgical, social and family history unless otherwise noted. Please see nursing chart for further information. There is no relevant family history pertinent to the presenting complaint Exam Narrative: GENERAL: Well-appearing, and in no acute distress. EYES: EOMI. Conjunctivae normal. ENT: Mucous membranes pink and moist. CHEST: No respiratory distress. Clear to auscultation. HEART: Regular rate and rhythm. No murmur appreciated. Normal peripheral pulses. ABDOMEN: abd soft, nondistended, normal active bowel sounds. Tender abdomen to bilateral lower quadrants with palpation. No guarding, rebound tenderness, asymmetry SKIN: Warm, dry, no rash. Capillary refill normal. Normal skin turgor. NEURO: No focal deficits. Alert and oriented x3. PSYCH: Normal affect. Course Course Emergency Course: Patient is aware of diagnosis, under
== END 2022-01-18 11:43 | disposition home or self-care (01) ==
PROVIDERS: Emergency Provider Nurse Practitioner Family; PCP Family Medicine
DX: R19.7 Diarrhea, unspecified (principal); R10.31 Right lower quadrant pain; R10.32 Left lower quadrant pain; F17.210 Nicotine dependence, cigarettes, uncomplicated; F17.290 Nicotine dependence, other tobacco product, uncomplicated; F90.9 Attention-deficit hyperactivity disorder, unspecified type; F41.9 Anxiety disorder, unspecified; F32.A Depression, unspecified
CPT/HCPCS: 99213; G0463

== ENCOUNTER 2022-07-17 08:47 | Emergency (ER) | payer OTHER, SELFPAY ==
[2022-07-17 09:00] VITALS: BP 104/47; PULSE 87; RESP 16; TEMP 37; O2SAT 98
--- NOTE | 2022-07-17 09:04 | ED.EAR ---
HPI - Ear Problem General Chief complaint: Ear Stated complaint: ear pain Time Seen by Provider: 07/17/22 09:04 Source: patient Mode of arrival: ambulatory Limitations: no limitations History of Present Illness HPI Narrative: 26 y/o female presented for c/o left ear pain for one week. States after being on an airplane yesterday with 4 different flights, she felt severe pain and then had blood to the canal. Also reports decreased hearing yesterday. States today the pain and hearing are better, no more bleeding, denies purulent drainage, tinnitus, sinus congestion, vomiting or fever. Not taking anything for symptoms. History of right cholesteatoma and frequent infections. MD Complaint: ear pain Related Data Home Medications Medication Instructions Recorded Confirmed trazodone 50 mg tablet See Rx Instructions .Route .COMPLEX 02/14/20 07/17/22 dextroamphetamine-amphetamine ER 20 mg PO DAILY 05/07/21 07/17/22 15 mg 24hr capsule,extend release aripiprazole 5 mg tablet 5 mg PO DAILY 07/17/22 07/17/22 dextroamphetamine-amphetamine 10 10 mg PO DAILY 07/17/22 07/17/22 mg tablet Allergies Allergy/AdvReac Type Severity Reaction Status Date / Time adhesive tape Allergy Mild Rash Verified 01/18/22 10:54 Review of Systems Review of Systems: CONSTITUTIONAL: Denies malaise, chills, or fever. EYES: Denies visual changes, redness, or discharge. ENT: Denies rhinorrhea, congestion, sinus pain, and sore throat. Reports ear pain CARDIOVASCULAR: Denies chest pain, palpitations, or edema. RESPIRATORY: Denies cough or dyspnea. GASTROINTESTINAL: Denies abdominal pain, nausea, vomiting, diarrhea SKIN: Denies rash or itching. MUSCULOSKELETAL: Denies myalgia. NEUROLOGIC: Denies headache. All systems reviewed & are unremarkable except as noted in HPI and below PMFSH Past Medical History Medical History ADHD Amblyopia Anxiety History of depression Microscopic colitis Mood disorder Surgical History Surgical History H/O colonoscopy H/O endoscopy Hx of tonsillectomy Family History Family History Mother Heart disease Hypertension Hyperlipidemia Father Carcinoma of colon early colon cancer in his 40s Narcolepsy Sibling Depression Schizophrenia Bipolar disorder Autism spectrum disorder Asperger syndrome Grandparent Breast cancer Narcolepsy Carcinoma of colon Social History Social History Smoking packs per day: 2 Smoking cigarettes per day: 40.0 Years smoked: 7 Smoking pack-years: 14.00 Smoking status: Current some day smoker Tobacco type: cigarettes and e-cigarettes/vaping Second hand tobacco smoke exposure: Yes Alcohol intake: current Drinks per week: 1 Substance use: current Substance use type: marijuana Other substance usage details: uses 1-2 times per month Last use: 1 week ago Gender identity (if verbalized by the patient): Female Spiritual care concerns: No Comments At time of signature, agree with nursing past medical, surgical, social and family history. There is no relevant family history pertinent to the presenting complaint Exam Narrative: GENERAL: Well-appearing, in no acute distress. HEAD: Normocephalic EYES: PERRLA, conjunctivae clear ENT: Nares clear. Mucous membranes moist. TMs pearly torres with scarring, normal light reflex bilaterally, no apparent rupture to left TM, no bleeding to canal; no mastoid or tragal tenderness. Oropharynx not erythematous without lesions. NECK: Supple. No lymphadenopathy CHEST: Clear to auscultation, breath sounds equal. HEART: Regular rate and rhythm. No murmur heard. SKIN: Warm, dry, no rash. NEURO: Alert and oriented x3. Course Course Emergency Course: Patient is aware of diagnos
== END 2022-07-17 09:18 | disposition home or self-care (01) ==
PROVIDERS: Emergency Provider Nurse Practitioner Family
DX: H92.02 Otalgia, left ear (principal); F17.210 Nicotine dependence, cigarettes, uncomplicated; F17.290 Nicotine dependence, other tobacco product, uncomplicated; F90.9 Attention-deficit hyperactivity disorder, unspecified type; F32.A Depression, unspecified
CPT/HCPCS: 99213; G0463

== ENCOUNTER 2022-09-13 10:37 | Emergency (ER) | payer OTHER, SELFPAY ==
[2022-09-13 10:48] VITALS: BP 104/56; PULSE 86; RESP 16; TEMP 37; O2SAT 99
--- NOTE | 2022-09-13 10:50 | ED.EAR ---
HPI - Ear Problem General Chief complaint: Ear Stated complaint: Right Ear Irritation Time Seen by Provider: 09/13/22 10:51 Source: patient Mode of arrival: ambulatory Limitations: no limitations History of Present Illness HPI Narrative: 26-year-old female presents with complaint right ear pain for approximately 1 week. Reports nasal congestion , sinus pain and pressure for 10 days. afebrile. Not taking any [id number] medications to treat her symptoms. Reports history of frequent ear infections. All systems reviewed and negative except as noted above. Related Data Home Medications Medication Instructions Recorded Confirmed trazodone 50 mg tablet See Rx Instructions .Route .COMPLEX 02/14/20 09/13/22 dextroamphetamine-amphetamine ER 20 mg PO DAILY 05/07/21 09/13/22 15 mg 24hr capsule,extend release aripiprazole 5 mg tablet 5 mg PO DAILY 07/17/22 09/13/22 dextroamphetamine-amphetamine 10 10 mg PO DAILY 07/17/22 09/13/22 mg tablet buspirone 5 mg tablet 5 mg PO TID 09/13/22 09/13/22 Allergies Allergy/AdvReac Type Severity Reaction Status Date / Time adhesive tape Allergy Mild Rash Verified 09/13/22 10:47 Review of Systems Review of Systems: CONSTITUTIONAL: Denies fever, chills, or sweats. EYES: Denies visual changes, redness, or discharge. ENT: Reports rhinorrhea, congestion, sinus pressure. Denies sore throat . Reports right ear pain. CARDIOVASCULAR: Denies chest pain, palpitations, or edema. RESPIRATORY: Denies cough or dyspnea. GASTROINTESTINAL: Denies abdominal pain, nausea, vomiting, or diarrhea. GENITOURINARY: Denies dysuria or hematuria. SKIN: Denies rash or itching. MUSCULOSKELETAL: Denies back pain, joint pain, or myalgia. NEUROLOGIC: Denies headache, numbness, or weakness. PSYCHIATRIC: Denies anxiety or depression. All other systems reviewed are negative, except as documented in HPI. [facility] Past Medical History Medical History ADHD Amblyopia Anxiety History of depression Microscopic colitis Mood disorder Surgical History Surgical History H/O colonoscopy H/O endoscopy Hx of tonsillectomy Family History Family History Mother Heart disease Hypertension Hyperlipidemia Father Carcinoma of colon early colon cancer in his 40s Narcolepsy Sibling Depression Schizophrenia Bipolar disorder Autism spectrum disorder Asperger syndrome Grandparent Breast cancer Narcolepsy Carcinoma of colon Social History Social History Smoking packs per day: 2 Smoking cigarettes per day: 40.0 Years smoked: 7 Smoking pack-years: 14.00 Smoking status: Current some day smoker Tobacco type: cigarettes and e-cigarettes/vaping Second hand tobacco smoke exposure: Yes Alcohol intake: current Drinks per week: 1 Substance use: current Substance use type: marijuana Other substance usage details: uses 1-2 times per month Last use: 1 week ago Gender identity (if verbalized by the patient): Female Spiritual care concerns: No Comments At time of signature, agree with nursing past medical, surgical, social and family history. There is no relevant family history pertinent to the presenting complaint. Exam Narrative: GENERAL: This is a well-nourished, well-developed patient, in no apparent distress. HEAD: normocephalic, atraumatic. EYES: PERRL. Sclera clear/white. Vision is grossly intact. EARS: External ears normal, left ear canal normal. Right ear canal is swollen and erythematous., Fluid bilateral TMs without erythema or perforation. NOSE: External nose normal Moderate congestion, bilateral maxillary sinus tenderness. THROAT: Mucous membranes moist, Erythema with postnasal drainage. NECK: Neck supple, non-tender withou
== END 2022-09-13 11:03 | disposition home or self-care (01) ==
PROVIDERS: Emergency Provider Nurse Practitioner Family; PCP Family Medicine
DX: J01.90 Acute sinusitis, unspecified (principal); H60.331 Swimmer's ear, right ear; F17.210 Nicotine dependence, cigarettes, uncomplicated; F17.290 Nicotine dependence, other tobacco product, uncomplicated; F12.90 Cannabis use, unspecified, uncomplicated; F90.9 Attention-deficit hyperactivity disorder, unspecified type; F41.9 Anxiety disorder, unspecified; F32.A Depression, unspecified
CPT/HCPCS: 99213; G0463

== ENCOUNTER 2023-10-01 11:50 | Emergency (ER) | payer BC, SELFPAY ==
--- NOTE | 2023-10-01 11:55 | ED.GENADULT ---
HPI - General Adult General Chief complaint: Ear Stated complaint: Ears Irritation Time Seen by Provider: 10/01/23 11:57 Source: patient, RN notes reviewed and old records reviewed Mode of arrival: ambulatory Limitations: no limitations History of Present Illness HPI narrative: 28-year-old female presents to the [facility] with complaints of bilateral ear pain. Patient reports 1 week ago she had an upper respiratory issue, states all of her symptoms have been getting better except her ears have had increased pain. Related Data Home Medications Medication Instructions Recorded Confirmed trazodone 50 mg tablet See Rx Instructions .Route .COMPLEX 02/14/20 09/13/22 aripiprazole 5 mg tablet 10 mg PO DAILY 07/17/22 09/13/22 buspirone 5 mg tablet 5 mg PO TID 09/13/22 09/13/22 cabergoline 0.5 mg tablet 0.25 mg PO 2XW 10/01/23 10/01/23 methylphenidate HCl 45 mg 45 mg PO QAM 10/01/23 10/01/23 tablet,extended release 24 hr metoprolol succinate 25 mg 12.5 mg PO DAILY 10/01/23 10/01/23 tablet,extended release 24 hr Allergies Allergy/AdvReac Type Severity Reaction Status Date / Time adhesive tape Allergy Mild Rash Verified 10/01/23 12:02 Review of Systems Review of Systems: All systems reviewed & are unremarkable except as noted in HPI and below Constitutional: Constitutional: Reports no additional constitutional complaints Eyes: Eyes: Reports no additional eye complaints ENT: Reports as per HPI and Reports otalgia Cardiovascular: Cardiovascular: Reports no additional cardiovascular complaints, Denies chest pain and Denies dyspnea Respiratory: Respiratory: Reports no additional respiratory complaints, Denies chest congestion, Denies cough and Denies dyspnea Gastrointestinal: Gastrointestinal: Reports no additional gastrointestinal complaints, Denies abdominal pain, Denies nausea and Denies vomiting Musculoskeletal: Musculoskeletal: Reports no additional musculoskeletal complaints Integumentary/Breasts: Skin/Breast: Reports system reviewed and no additional complaints, except as docu Neurologic: Reports system reviewed and no additional complaints, except as documented Psychiatric: Psychiatric: Reports no additional psychiatric complaints Allergic/Immunologic: Allergic/Immunologic: Reports no additional allergic/immunologic complaints PMFSH Past Medical History Medical History ADHD Amblyopia Anxiety History of depression Microscopic colitis Mood disorder Surgical History Surgical History H/O colonoscopy H/O endoscopy Hx of tonsillectomy Family History Family History Mother Heart disease Hypertension Hyperlipidemia Father Carcinoma of colon early colon cancer in his 40s Narcolepsy Sibling Depression Schizophrenia Bipolar disorder Autism spectrum disorder Asperger syndrome Grandparent Breast cancer Narcolepsy Carcinoma of colon Social History Social History Smoking packs per day: 2 Smoking cigarettes per day: 40.0 Years smoked: 7 Smoking pack-years: 14.00 Smoking status: Current some day smoker Tobacco type: cigarettes and e-cigarettes/vaping Second hand tobacco smoke exposure: Yes Alcohol intake: current Drinks per week: 1 Substance use: current Substance use type: marijuana Other substance usage details: uses 1-2 times per month Last use: 1 week ago Gender identity (if verbalized by the patient): Female Spiritual care concerns: No Comments At the time of my signature, I reviewed and agree with the nursing past medical, surgical, social, and family history. There is no relevant family history pertinent to the patient complaint. Exam Const: General: cooperative, healthy appearing, comfortable, no acute distress, well dev
[2023-10-01 11:58] VITALS: BP 122/69; PULSE 98; RESP 16; TEMP 37.3; O2SAT 99
[2023-10-01 12:06] VITALS: BP 122/69; PULSE 98; RESP 16; TEMP 37.3; O2SAT 99
== END 2023-10-01 12:12 | disposition home or self-care (01) ==
PROVIDERS: Emergency Provider Nurse Practitioner; PCP Family Medicine
DX: H66.92 Otitis media, unspecified, left ear (principal); H65.01 Acute serous otitis media, right ear; F17.210 Nicotine dependence, cigarettes, uncomplicated; F17.290 Nicotine dependence, other tobacco product, uncomplicated; F90.9 Attention-deficit hyperactivity disorder, unspecified type; F41.9 Anxiety disorder, unspecified; F32.A Depression, unspecified
CPT/HCPCS: 99213; G0463

== ENCOUNTER 2024-01-26 16:09 | Emergency (ER) | payer BC, SELFPAY ==
--- NOTE | ~2024-01-26 | XR_ITS ---
XR chest 2V Ordering provider: Archana Quiroz NP History: 28 years Female with . prod cough x 3 days smokes and vapes . Comparison: None. FINDINGS: MEDIASTINUM: The cardiac silhouette is not enlarged. LUNGS: No infiltrates, effusions or pneumothorax. OTHER: No free air under the diaphragm. IMPRESSION: No acute cardiopulmonary pathology. Reviewed, dictated and finalized at location A. T ADVISOR
[2024-01-26 16:30] VITALS: BP 104/65; PULSE 84; RESP 18; TEMP 37.2; O2SAT 100
--- NOTE | 2024-01-26 16:42 | ED_ITS ---
HPI - URI/Sore Throat General Chief Complaint: Nausea/Vomiting/Diarrhea Stated Complaint: stomachache/diarrhea,lungs on fire Time Seen by Provider: 01/26/24 16:43 Source: patient Mode of arrival: ambulatory Limitations: no limitations History of Present Illness HPI Narrative: 28 yo F presents with cough, nasal congestion, sore throat, fatigue, PND, headache for 3 days. Afebrile. SOB with exertion starting yesterday. Pt has N/V at baseline. Has seen GI specialist without diagnosis. All systems reviewed and negative except as noted above. Related Data Home Medications Medication Instructions Recorded Confirmed trazodone 50 mg tablet See Rx Instructions .Route .COMPLEX 02/14/20 01/26/24 aripiprazole 5 mg tablet 10 mg PO DAILY 07/17/22 01/26/24 buspirone 5 mg tablet 5 mg PO TID 09/13/22 01/26/24 cabergoline 0.5 mg tablet 0.25 mg PO 2XW 10/01/23 01/26/24 methylphenidate HCl 45 mg 45 mg PO QAM 10/01/23 01/26/24 tablet,extended release 24 hr metoprolol succinate 25 mg 12.5 mg PO DAILY 10/01/23 01/26/24 tablet,extended release 24 hr Allergies Allergy/AdvReac Type Severity Reaction Status Date / Time adhesive tape Allergy Mild Rash Verified 01/26/24 16:17 Review of Systems Review of Systems: CONSTITUTIONAL: Denies fever, chills, or sweats. reports fatigue. EYES: Denies visual changes, redness, or discharge. ENT: reports rhinorrhea, congestion, sore throat. Denies otalgia. CARDIOVASCULAR: Denies chest pain, palpitations, or edema. RESPIRATORY: Reports cough and dyspnea with exertion. GASTROINTESTINAL: Denies abdominal pain, nausea, vomiting, or diarrhea. GENITOURINARY: Denies dysuria or hematuria. SKIN: Denies rash or itching. MUSCULOSKELETAL: Denies back pain, joint pain, or myalgia. NEUROLOGIC: Denies headache, numbness, or weakness. PSYCHIATRIC: Denies anxiety or depression. All other systems reviewed are negative, except as documented in HPI. [facility] Past Medical History Medical History ADHD Amblyopia Anxiety History of depression Microscopic colitis Mood disorder Surgical History Surgical History H/O colonoscopy H/O endoscopy Hx of tonsillectomy Family History Family History Mother Heart disease Hypertension Hyperlipidemia Father Carcinoma of colon early colon cancer in his 40s Narcolepsy Sibling Depression Schizophrenia Bipolar disorder Autism spectrum disorder Asperger syndrome Grandparent Breast cancer Narcolepsy Carcinoma of colon Social History Social History Smoking packs per day: 2 Smoking cigarettes per day: 40.0 Years smoked: 7 Smoking pack-years: 14.00 Smoking status: Current some day smoker Tobacco type: cigarettes and e-cigarettes/vaping Second hand tobacco smoke exposure: Yes Alcohol intake: current Drinks per week: 1 Substance use: current Substance use type: marijuana Other substance usage details: uses 1-2 times per month Last use: 1 week ago Gender identity (if verbalized by the patient): Female Spiritual care concerns: No Comments At time of signature, agree with nursing past medical, surgical, social and family history. There is no relevant family history pertinent to the presenting complaint. Exam Narrative: GENERAL: This is a well-nourished, well-developed patient, in no apparent distress. HEAD: normocephalic, atraumatic. EYES: PERRL. Sclera clear/white. Vision is grossly intact. EARS: External ears normal, auditory canals clear and without drainage, TMs normal without perforation. Hearing grossly intact. NOSE: External nose normal with no obvious nasal discharge, nares without redness, no rhinorrhea. THROAT: Mucous membranes moist, Mild erythema postnasal drainage NECK: Neck supple, non-tender without lymphadenopathy, masses or thyromegaly. CARDIOVASCULAR: Regular rate and rhythm without murmurs, gallops, or rubs. RESPIRATORY: decreased bilateral lower lung manriquez. Breath sounds equal bilaterally. No wheezes, rales, or rhonchi. SKIN: warm, Dry, intact with no suspicious lesions or rash, good texture and turgor. NEURO: awake, alert, and oriented to person, place and time. There were no obvious focal neurologic abnormalities. EXTREMITIES: No joint tenderness, effusion, or edema noted. Course Course Level of Care: Express Care Visit Vital Signs Vital signs: Vital Signs Temperature 37.2 C 01/26/24 16:30 Pulse Rate 84 01/26/24 16:30 Respiratory Rate 18 01/26/24 16:30 Blood Pressure 104/65 01/26/24 16:30 Pulse Oximetry 100 01/26/24 16:30 Oxygen Delivery Room Air 01/26/24 16:30 Temperature 37.2 C 01/26/24 16:30 Pulse Rate 84 01/26/24 16:30 Respiratory Rate 18 01/26/24 16:30 Blood Pressure 104/65 01/26/24 16:30 Pulse Oximetry 100 01/26/24 16:30 Oxygen Delivery Room Air 01/26/24 16:30 Reviewed MDM - URI/Sore Throat MDM Narrative Medical decision making narrative: negative COVID, influenza and strep. Chest x-ray normal. patient well- appearing. Recommend she continue [id number] medications to treat viral symptoms. Patient is aware of diagnosis, understands and agrees to treatment plan. Anticipatory guidance given. Patient agrees to follow-up as directed and is aware of reasons to seek care at the emergency department. Portions of this record may have been created with voice recognition software Differential Diagnosis Differential diagnosis: Likely upper respiratory infection, sinusitis, viral infection, bronchitis, influenza and pharyngitis Lab Data Labs: Lab Results 01/26/24 Range/Units 16:30 POC Influenza A Ag Negative (Negative) POC Influenza B Ag Negative (Negative) POC SARS CoV-2 Ag Negative (Negative) POC Grp A Strep Screen Negative (Negative) Imaging Data My impression: Agree with radiologist Radiologist's impression: XR chest 2V Ordering provider: Archana Quiroz NP History: 28 years Female with . prod cough x 3 days smokes and vapes . Comparison: None. FINDINGS: MEDIASTINUM: The cardiac silhouette is not enlarged. LUNGS: No infiltrates, effusions or pneumothorax. OTHER: No free air under the diaphragm. IMPRESSION: No acute cardiopulmonary pathology. Discharge Plan Discharge Clinical Impression: Viral upper respiratory tract infection with cough Patient Disposition: Home, Self-Care Condition: Stable Instructions: Upper Respiratory Infection (ED) Additional Instructions: your COVID, influenza and strep test were negative today. Your chest x-ray was negative for pneumonia. Your symptoms are viral and may last 7-10 days. taking [id number] medication to treat her symptoms such as DayQuil NyQuil cold and flu. Drink at least 64 oz of water a day. Follow-up your primary care physician if symptoms are not improving. Prescriptions: No Action buspirone 5 mg tablet 5 mg PO TID cabergoline 0.5 mg tablet 0.25 mg PO 2XW metoprolol succinate 25 mg tablet extended release 24 hr 12.5 mg PO DAILY methylphenidate HCl 45 mg tablet extended release 24 hr 45 mg PO QAM aripiprazole 5 mg tablet 10 mg PO DAILY trazodone 50 mg tablet See Rx Instructions .ROUTE .COMPLEX Rx Instructions: Take 1-3 tablets at bedtime PRN insomnia Follow-up/Referrals: Fide,MD Mervat [Primary Care Provider] - Time of Disposition: 17:19
[2024-01-26 17:00] LABS: EDCOVIDSCREEN Negative (Negative)
[2024-01-26 17:01] LABS: EDINFLUASCREEN Negative (Negative); EDINFLUBSCREEN Negative (Negative); EDSTREPNEGPOS1 Negative (Negative)
== END 2024-01-26 17:25 | disposition home or self-care (01) ==
PROVIDERS: Emergency Provider Nurse Practitioner Family; PCP Internal Medicine
DX: J06.9 Acute upper respiratory infection, unspecified (principal); R05.9 Cough, unspecified; Z20.822 Contact with and (suspected) exposure to COVID-19; F17.210 Nicotine dependence, cigarettes, uncomplicated; F17.290 Nicotine dependence, other tobacco product, uncomplicated; F90.9 Attention-deficit hyperactivity disorder, unspecified type; F41.9 Anxiety disorder, unspecified; F32.A Depression, unspecified
CPT/HCPCS: 71046; 87081; 87426; 87804; 87880; 99213; G0463

== ENCOUNTER 2024-12-02 09:18 | Emergency (ER) | payer BC, SELFPAY ==
[2024-12-02 09:31] VITALS: BP 96/67; PULSE 74; RESP 18; TEMP 36.8; O2SAT 98
[2024-12-02 10:20] LABS: EDSTREPNEGPOS1 Negative (Negative)
--- NOTE | 2024-12-02 10:24 | ED_ITS ---
HPI - General Adult General Chief complaint: Upper Respiratory Infection Stated complaint: sore throat Source: patient Mode of arrival: ambulatory Limitations: no limitations History of Present Illness HPI narrative: Pt presents for evaluation of sore throat. Symptom onset five days ago. She went to urgent care and was diagnosed with a double ear infection. She was given cefdinir, which she has been taking as directed. She states her ear pain is improving but sore throat is worsening. She denies any fever, chills, cough or SOB. She has chronic nausea and diarrhea, which is unchanged. She has underlying ulcerative colitis. She does vape and uses marijuana. The visitor in her room was diagnosed with COVID recently. Related Data Home Medications ?Medication ?Instructions ?Recorded ?Confirmed ?Last Taken ?Type aripiprazole 5 mg tablet 10 mg PO DAILY 07/17/2206/15 Unknown History buspirone 5 mg tablet 5 mg PO TID 09/13/22 4 Unknown History methylphenidate HCl 45 mg 45 mg PO QAM 10/01/23 Unknown History tablet,extended release 24 hr metoprolol succinate 25 mg 50 mg PO DAILY 10/01/2306/15 Unknown History tablet,extended release 24 hr aluminum chloride 20 % topical topical 12/02/24 Unkno wn History solution (Drysol Dab-O-Matic) cefdinir 300 mg capsule mg 12/02/24 Unknown History dextroamphetamine-amphetamine ER PO 12/02/24 Unknown History 20 mg 24hr capsule,extend release fludrocortisone 0.1 mg tablet mg 12/02/24 Unknown His tory gabapentin 100 mg capsule mg 12/02/24 Unknown History quetiapine 50 mg tablet,extended mg PO 12/02/24 Unkno wn History release 24 hr Allergies Allergy/AdvReac Type Severity Reaction Status Date / Time adhesive tape Allergy Mild Rash Verified 12/02/24 10:19 Review of Systems Review of Systems: CONSTITUTIONAL: Denies fever, chills, or sweats. EYES: Denies visual changes, redness, or discharge. ENT: reports ear pain bilaterally, which is improving. Reports sore throat. CARDIOVASCULAR: Denies chest pain, palpitations, or edema. RESPIRATORY: Denies cough or dyspnea. GASTROINTESTINAL: Reports chronic nausea and diarrhea, both of which are unchanged. Denies abdominal pain and vomiting GENITOURINARY: Denies dysuria or hematuria. SKIN: Denies rash or itching. MUSCULOSKELETAL: Denies back pain, joint pain, or myalgia. NEUROLOGIC: Denies headache, numbness, dizziness, or weakness. PSYCHIATRIC: Denies anxiety or depression. [facility] Past Medical History Medical History Microscopic colitis ADHD Anxiety Mood disorder History of depression Amblyopia Surgical History Surgical History H/O colonoscopy H/O endoscopy Hx of tonsillectomy Family History Family History Mother Heart disease Hypertension Hyperlipidemia Father Carcinoma of colon early colon cancer in his 40s Narcolepsy Sibling Depression Schizophrenia Bipolar disorder Autism spectrum disorder Asperger syndrome Grandparent Breast cancer Narcolepsy Carcinoma of colon Social History Social History Smoking status: Current some day smoker Tobacco type: e-cigarettes/vaping Second hand tobacco smoke exposure: Yes Alcohol intake: current Drinks per week: 1 Substance use: current Substance use type: marijuana Other substance usage details: uses 1-2 times per month Last use: 1 week ago Gender identity (if verbalized by the patient): Female Spiritual care concerns: No Exam Narrative: GENERAL: Well-appearing, well-nourished, and in no acute distress. HEAD: Normocephalic, atraumatic. EYES: PERRLA and EOMI. ENT: Nares clear, no rhinorrhea or epistaxis. Mucous membranes moist. Oropharynx without tonsillar hypertrophy exudate or other lesions. There is posterior pharyngeal erythema. Bilateral TMs pearly torres nonbulging NECK: Supple. No adenopathy or masses. No carotid bruits or JVD CHEST: Clear to auscultation. No respiratory distress. No wheezes rales or rhonchi HEART: Regular rate and rhythm. No murmur heard. Normal peripheral pulses. ABDOMEN: Soft, nontender, nondistended, normal active bowel sounds. EXTREMITIES: Normal range of motion. No edema. SKIN: Warm, dry, no rash. NEURO: No focal deficits. Alert and oriented x3. PSYCH: Normal mood and affect. Course Course Emergency Course: This is a 29-year-old female who presented for evaluation of sore throat. Rapid strep negative. COVID and flu negative. will send throat culture. Through shared decision making opted to proceed with azithromycin as she has already been taking cefdinir. She was given decadron while here. She will also be discharged with prednisone. She should follow up with her PCP and go to the ER for worsening symptoms. Pt in agreement with plan of care. Level of Care: Express Care Visit Vital Signs Vital signs: Vital Signs Temperature 36.8 C 12/02/24 09:31 Pulse Rate 74 12/02/24 09:31 Respiratory Rate 18 12/02/24 09:31 Blood Pressure 96/67 L 12/02/24 09:31 Pulse Oximetry 98 12/02/24 09:31 Oxygen Delivery Room Air 12/02/24 09:31 Temperature 36.8 C 12/02/24 09:31 Pulse Rate 74 12/02/24 09:31 Respiratory Rate 18 12/02/24 09:31 Blood Pressure 96/67 L 12/02/24 09:31 Pulse Oximetry 98 12/02/24 09:31 Oxygen Delivery Room Air 12/02/24 09:31 Medical Decision Making Vital Signs Vital Signs: Vital Signs Temperature 36.8 C 12/02/24 09:31 Pulse Rate 74 12/02/24 09:31 Respiratory Rate 18 12/02/24 09:31 Blood Pressure 96/67 L 12/02/24 09:31 Pulse Oximetry 98 12/02/24 09:31 Oxygen Delivery Room Air 12/02/24 09:31 Temperature 36.8 C 12/02/24 09:31 Pulse Rate 74 12/02/24 09:31 Respiratory Rate 18 12/02/24 09:31 Blood Pressure 96/67 L 12/02/24 09:31 Pulse Oximetry 98 12/02/24 09:31 Oxygen Delivery Room Air 12/02/24 09:31 Lab Data Labs: Lab Results 12/02/24 12/02/24 Range/Units 10:18 10:45 POC Influenza A Ag Negative (Negative) POC Influenza B Ag Negative (Negative) POC SARS CoV-2 Ag Negative (Negative) POC Grp A Strep Screen Negative (Negative) Discharge Plan Discharge Clinical Impression: Pharyngitis Patient Disposition: Home Condition: Stable Instructions: Antibiotic Form, Pharyngitis (ED) Patient Language: Samoan Prescriptions: New azithromycin 500 mg tablet 500 mg PO DAILY 3 Days Qty: 3 0RF prednisone 20 mg tablet 40 mg PO DAILY Qty: 4 0RF No Action buspirone 5 mg tablet 5 mg PO TID metoprolol succinate 25 mg tablet extended release 24 hr 50 mg PO DAILY methylphenidate HCl 45 mg tablet extended release 24 hr 45 mg PO QAM Drysol Dab-O-Matic 20 % solution TOPICAL dextroamphetamine-amphetamine 20 mg capsule,extended release 24hr PO gabapentin 100 mg capsule fludrocortisone 0.1 mg tablet quetiapine 50 mg tablet extended release 24 hr PO cefdinir 300 mg capsule aripiprazole 5 mg tablet 10 mg PO DAILY Follow-up/Referrals: Donny,Monika [Other] Time of Disposition: 10:53
[2024-12-02 10:46] LABS: EDCOVIDSCREEN Negative (Negative); EDINFLUASCREEN Negative (Negative); EDINFLUBSCREEN Negative (Negative)
[2024-12-02] MEDS: dexAMETHasone SOD PHOS INJ 10 MG/ML 1 ML VIAL BY MOUTH (10:46)
== END 2024-12-02 11:05 | disposition home or self-care (01) ==
PROVIDERS: Emergency Provider Nurse Practitioner
DX: J02.9 Acute pharyngitis, unspecified (principal); Z20.822 Contact with and (suspected) exposure to COVID-19; F17.290 Nicotine dependence, other tobacco product, uncomplicated; F12.90 Cannabis use, unspecified, uncomplicated; F90.9 Attention-deficit hyperactivity disorder, unspecified type; F41.9 Anxiety disorder, unspecified; F32.A Depression, unspecified
CPT/HCPCS: 87081; 87426; 87804; 87880; 99213; G0463; J1100

== ENCOUNTER 2024-12-09 14:09 | Emergency (ER) | payer BC, SELFPAY ==
[2024-12-09 14:22] VITALS: BP 102/70; PULSE 91; RESP 16; TEMP 36.7; O2SAT 96
--- NOTE | 2024-12-09 14:26 | ED.FEMALEGU ---
HPI - Female Genitourinary General Chief complaint: WASHER BLANKET Stated complaint: Yeast Infection Symptoms the patient presents to the [facility] with complaints of worsening vaginal yeast infection. Patient reports she continues on 2 antibiotics currently, just finished 1 today. Noted that she is having significant irritation, swelling, itching, and discharge. Spoke with primary care physician and was sent in to Diflucan tablets which she has taken as directed without relief of symptoms. Patient noted attempting a Monistat [id number] for yeast infection many years ago and this did cause significant burning so she is afraid to use anything [id number] or topical. Denies any concerns for STDs at this time. Denies any vaginal odor, vaginal bleeding, urinary symptoms, abdominal pain, nausea, vomiting, diarrhea. Related Data Home Medications ?Medication ?Instructions ?Recorded ?Confirmed ?Last Taken ?Type aripiprazole 5 mg tablet 10 mg PO DAILY 07/17/22 01/26/24 Unknown History buspirone 5 mg tablet 5 mg PO TID 09/13/22 01/26/24 Unknown History methylphenidate HCl 45 mg 45 mg PO QAM 10/01/23 01/26/24 Unknown History tablet,extended release 24 hr metoprolol succinate 25 mg 50 mg PO DAILY 10/01/23 01/26/24 Unknown History tablet,extended release 24 hr aluminum chloride 20 % topical topical 12/02/24 Unknown History solution (Drysol Dab-O-Matic) cefdinir 300 mg capsule mg 12/02/24 Unknown History dextroamphetamine-amphetamine ER PO 12/02/24 Unknown History 20 mg 24hr capsule,extend release fludrocortisone 0.1 mg tablet mg 12/02/24 Unknown History gabapentin 100 mg capsule mg 12/02/24 Unknown History quetiapine 50 mg tablet,extended mg PO 12/02/24 Unknown History release 24 hr lorazepam 1 mg tablet mg 12/09/24 Unknown History Allergies Allergy/AdvReac Type Severity Reaction Status Date / Time adhesive tape Allergy Mild Rash Verified 12/09/24 14:20 Review of Systems Constitutional: Constitutional: Reports as per HPI, Denies chills and Denies fatigue ENT: Reports system reviewed and no additional complaints, except as documented Cardiovascular: Cardiovascular: Reports no additional cardiovascular complaints Respiratory: Respiratory: Reports no additional respiratory complaints Gastrointestinal: Gastrointestinal: Reports as per HPI, Denies abdominal pain, Denies diarrhea, Denies nausea and Denies vomiting Genitourinary: Genitourinary: Reports as per HPI, Denies abnormal vaginal bleeding, Denies hematuria, Denies nocturia, Denies genital lesions, Denies dysuria, Denies pelvic pain, Denies flank pain, Denies urinary incontinence and Reports vaginal discharge Comments: Vaginal swelling, irritation, vaginal itching Musculoskeletal: Musculoskeletal: Reports as per HPI and Denies back pain Integumentary/Breasts: Skin/Breast: Reports as per HPI, Reports pruritus, Reports erythema and Denies rash Neurologic: Reports as per HPI, Denies headache(s) and Denies weakness Psychiatric: Psychiatric: Reports no additional psychiatric complaints Endocrine: Endocrine: Reports no additional endocrine complaints Hematologic/Lymphatic: Hematologic/Lymphatic: Reports no additional hematologic/lymphatic complaints Allergic/Immunologic: Allergic/Immunologic: Reports no additional allergic/immunologic complaints PMFSH Past Medical History Medical History Microscopic colitis ADHD Anxiety Mood disorder History of depression Amblyopia Surgical History Surgical History H/O colonoscopy H/O endoscopy Hx of tonsillectomy Family History Family History Mother Heart disease Hypertension Hyperlipidemia Father Carcinoma of colon early colon cancer in his 40s Narcolepsy Sibling Depression Schizophrenia Bipolar disorder Autism spectrum disorder Asperger syndrome Grandparent Breast cancer Narcolepsy Carcinoma of colon Social History Social History Smoking status: Current some day smoker Tobacco type: e-cigarettes/vaping Second hand tobacco smoke exposure: Yes Alcohol intake: current Drinks per week: 1 Substance use: current Substance use type: marijuana Other substance usage details: uses 1-2 times per month Last use: 1 week ago Gender identity (if verbalized by the patient): Female Spiritual care concerns: No Exam Const: General: healthy appearing and no acute distress Nutritional Appearance: well nourished Orientation/consciousness: patient oriented x3 Limitations: no limitations Resp: Effort & Inspection: normal respiratory effort Auscultation: clear to auscultation bilaterally Cardio: Rate: regular rate Rhythm: regular rhythm : Other: declines vaginal exam Skin: General skin exam: normal color Rashes: no rashes Wounds: no wounds Neuro: General: patient oriented x3 Speech: normal speech Gait exam (Neuro): Normal gait present Psych: Appearance: grossly normal Mental Status: mental status grossly normal Affect: normal affect Attitude: cooperative Course Course Level of Care: Express Care Visit Vital Signs Vital signs: Vital Signs Temperature 98.1 F 12/09/24 14:22 Pulse Rate 91 12/09/24 14:22 Respiratory Rate 16 12/09/24 14:22 Blood Pressure 102/70 12/09/24 14:22 Pulse Oximetry 96 12/09/24 14:22 Oxygen Delivery Room Air 12/09/24 14:22 Temperature 98.1 F 12/09/24 14:22 Pulse Rate 91 12/09/24 14:22 Respiratory Rate 16 12/09/24 14:22 Blood Pressure 102/70 12/09/24 14:22 Pulse Oximetry 96 12/09/24 14:22 Oxygen Delivery Room Air 12/09/24 14:22 MDM - Female Genitourinary MDM Narrative Medical decision making narrative: 2 fluconazole treatments completed patient continues with antibiotics. Can try other oral antifungal medication upon printed for patient. May need to wait until antibiotics are completed to use fluconazole. The patient was evaluated by myself in the express care. History is obtained from patient who is an independent historian and physical exam was performed. Available medical records were reviewed at this time. Exam findings show no acute concerns or changes; patient is non-toxic appearing and is in no distress. Patient is appropriate for outpatient treatment and follow-up. I have evaluated and discussed social determinants of health with the patient that could potentially impact subsequent diagnosis and treatment plans. Differential diagnosis and treatment plan were discussed with the patient. Patient agrees with discussion and after shared medical decision making agrees with plan of care. All questions were answered to the patient's satisfaction. Differential Diagnosis Differential diagnosis: Likely bacterial vaginosis, cervicitis, vaginitis, cystitis and dysmenorrhea Medical Records Attestation: I reviewed the patient's medical records. Discharge Plan Discharge Clinical Impression: Acute candidiasis of vulva and vagina Patient Disposition: Home Condition: Stable Instructions: Antibiotic Form, Yeast Infection (ED) Additional Instructions: take the medication as directed, hopefully this will clear up your infection. This may not clear up since you are still taking the antibiotics currently. If this does not improve follow-up with primary care physician or family and consumer science professor for further evaluation and other options. Patient Language: Tamazight Prescriptions: New Brexafemme 150 mg tablet See Rx Instructions .ROUTE .COMPLEX Qty: 4 0RF Rx Instructions: orally per package directions No Action lorazepam 1 mg tablet buspirone 5 mg tablet 5 mg PO TID metoprolol succinate 25 mg tablet extended release 24 hr 50 mg PO DAILY methylphenidate HCl 45 mg tablet extended release 24 hr 45 mg PO QAM Drysol Dab-O-Matic 20 % solution TOPICAL dextroamphetamine-amphetamine 20 mg capsule,extended release 24hr PO gabapentin 100 mg capsule fludrocortisone 0.1 mg tablet quetiapine 50 mg tablet extended release 24 hr PO cefdinir 300 mg capsule azithromycin 500 mg tablet 500 mg PO DAILY 3 Days Qty: 3 0RF prednisone 20 mg tablet 40 mg PO DAILY Qty: 4 0RF aripiprazole 5 mg tablet 10 mg PO DAILY Follow-up/Referrals: PHYSICIAN,PIPED BUTTONHOLE MACHINE OPERATOR [Primary Care Provider, Internal Medicine] Time of Disposition: 14:38
== END 2024-12-09 14:40 | disposition home or self-care (01) ==
PROVIDERS: Emergency Provider Nurse Practitioner Family
DX: B37.31 Acute candidiasis of vulva and vagina (principal); F17.290 Nicotine dependence, other tobacco product, uncomplicated; F12.90 Cannabis use, unspecified, uncomplicated; F90.9 Attention-deficit hyperactivity disorder, unspecified type; F41.9 Anxiety disorder, unspecified; F32.A Depression, unspecified
CPT/HCPCS: 99213; G0463